=== PATIENT | male | born 1985 | race Caucasian/White ===

== ENCOUNTER 2020-05-11 17:24 | Emergency (ER) | payer MEDICAID, SELFPAY ==
[2020-05-11 17:46] VITALS: BP 115/96; PULSE 82; RESP 18; TEMP 36.8; O2SAT 97; BMI 38.0
--- NOTE | 2020-05-11 18:18 | ED_ITS ---
HPI - General Adult General Chief complaint: Psychiatric Symptoms Stated complaint: Medical Clearance Time Seen by Provider: 05/11/20 17:51 Source: patient Mode of arrival: ambulatory Limitations: no limitations History of Present Illness HPI narrative: 34 y/o male with history of anxiety/depression who presents to the ER requesting a refill of his sertraline that he ran out of a while ago. 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 He denies SI, HI, AH, VH. Denies depression. Has not followed with his doctor in a long time. He states he had not taken his sertraline in over 1 week. When ED staff spoke with his pharmacy they have no record of sertraline being filled there. He denies going to another pharmacy. He denies drug or alcohol use. MD complaint: medication refill Onset (ago): unknown Treatments prior to arrival: none Related Data Previous Rx's Medication Instructions Recorded hydroxyzine HCl 50 mg PO Q6-8H PRN #14 tab 05/11/20 Allergies Allergy/AdvReac Type Severity Reaction Status Date / Time No Known Allergies Allergy Unverified 03/09/20 15:41 Review of Systems Review of Systems: Constitutional: No Fever, No Chills Cardiovascular: No Chest Pain, No SOB Respiratory: No Cough Gastrointestinal: No Nausea, No Vomiting, No Diarrhea, No abdominal Pain Skin: No Skin Lesions, No rash Neuro:+ Headache Psych: + Anxiety/Panic, No Depression PMFSH Past Medical History Attestation statement: The following information was validated with the patient. Social History Social History Alcohol intake: unknown Smoking Status: Current every day smoker Smoked in Last 30 Days: Yes Use of substances other than those prescribed or required for medical reasons: No Advance Directives: No Advance Directives Information Provided: Yes Physical Exam Vital Signs: Vital Signs: Last Vital Signs Temp 98.2 F 05/11/20 17:46 Pulse 82 05/11/20 17:46 Resp 18 05/11/20 17:46 BP 115/96 H 05/11/20 17:46 Pulse Ox 97 05/11/20 17:46 Body Mass Index 38.0 Appearance: Alert. Oriented X3. No acute distress. Eyes: Pupils equal, round and reactive to light. ENT: Pharynx normal. Neck: Normal inspection. Neck supple. CVS: Normal heart rate and rhythm. Pulses normal. Respiratory: No respiratory distress. Breath sounds normal. Abdomen: Soft and nontender. +BS x4 Skin: Skin warm and dry. Normal skin color. Normal skin turgor. No rashes. Extremities: No lower extremity edema. Neuro: Oriented X 3. No motor deficit. No sensory deficit. Course Course Course Narrative: 34 y/o male presenting requesting med refill. No known record of being on this medication. He has no symptoms of acute SSRI withdrawal. He was advised in order to be restarted on this medication he will need to follow up with his PCP. He was also given resources to start up with PCP here. Will give Rx for PRN atarax given anxiety episdoes at home now. Stable for discharge. Critical Care Time Critical Care Time Critical Care Time: No Discharge Plan Discharge Clinical Impression: Anxiety Patient Disposition: Home, Self-Care Instructions: Anxiety (ED) Additional Instructions: Recommend following up with your doctor or call the Primary Care Office here to establish a doctor. In order to get re-started on sertraline, it needs to be done with a doctor who will follow up with you and monitor you. Take the prescribed medication as needed for anxiety. If you develop severe depression with suicidal thoughts call 911 or come back to the ER for further evaluation. Prescriptions: New hydroxyzine HCl 25 mg tablet 50 mg PO Q6-8H PRN (Reason: anxiety ) Qty: 14 RF: 0
== END 2020-05-11 18:56 | disposition home or self-care (01) ==
PROVIDERS: Emergency Provider Emergency Medicine
DX: F33.1 Major depressive disorder, recurrent, moderate (principal); F41.1 Generalized anxiety disorder; F43.0 Acute stress reaction; Z76.0 Encounter for issue of repeat prescription; Z79.899 Other long term (current) drug therapy
CPT/HCPCS: 99284

== ENCOUNTER 2021-04-18 23:31 | Emergency (ER) | payer MEDICAID, SELFPAY ==
--- NOTE | ~2021-04-18 | XR_ITS ---
EXAMINATION: XR SHOULDER, LEFT CLINICAL INFORMATION: Shoulder pain without injury COMPARISON: None TECHNIQUE: Three views of the left shoulder. FINDINGS: The bones and soft tissues are normal. No fracture. Glenohumeral and acromioclavicular alignment is anatomic with mild degenerative changes at the AC joint. No abnormal soft tissue calcifications. XR/XR shoulder LT min 2V IMPRESSION: Normal left shoulder aside from mild degenerative changes at the acromioclavicular joint.
[2021-04-18 23:38] VITALS: BP 146/93; PULSE 84; RESP 16; TEMP 37; O2SAT 98; BMI 34.8
--- NOTE | 2021-04-18 23:38 | ED.UPPEXIN ---
HPI - Extremity Injury (Upper) General Chief Complaint: Extremity Injury, Upper Stated Complaint: Shoulder pain Time Seen by Provider: 04/18/21 23:33 Source: patient Mode of arrival: ambulatory Limitations: no limitations History of Present Illness MD complaint: injury to: left and shoulder Onset (ago): week(s) (1 week ) Other injuries: none Handedness: right Severity: mild Severity scale (1-10): 7 Relieving factors: none Exacerbating factors: none Context: other (None that he can recall) Associated symptoms: denies other symptoms Related Data Previous Rx's Medication Instructions Recorded hydroxyzine HCl 25 mg tablet 50 mg PO Q6-8H PRN #14 tab 05/11/20 cyclobenzaprine 10 mg tablet 10 mg PO Q8H PRN #14 tab 04/18/21 naproxen 500 mg tablet 500 mg PO BID PRN #10 tab 04/18/21 Allergies Allergy/AdvReac Type Severity Reaction Status Date / Time No Known Allergies Allergy Verified 04/18/21 23:37 Review of Systems Review of Systems: Constitutional : No Weight loss, No Fever, No Chills, No Night Sweats, No Fatigue, No Malaise ENT/Mouth : No Hearing loss, No Ear Pain, No Nasal Congestion, No Sinus Pain, No Hoarseness, No sore throat, No Rhinorrhea, No Swallowing Difficulty Eyes: No Eye Pain, No Swelling, No Redness, No Foreign Body, No Discharge, No Vision Changes Cardiovascular : No Chest Pain, No SOB, No Dyspnea on Exertion, No Orthopnea, No Edema, No Palpitations Respiratory : No Cough, No Sputum, No Wheezing, No Smoke Exposure, No Dyspnea Gastrointestinal : No Nausea, No Vomiting, No Diarrhea, No Constipation, No abdominal Pain, No Hematochezia, No Melena Genitourinary : no irregular bleeding, No Dysuria, No Urinary Frequency, No Hematuria, No Urinary Incontinence, No Urgency, No Flank Pain, No Urinary Flow Changes, No Hesitancy Musculoskeletal : + joint pain, No Myalgias, No Joint Swelling Skin : No Skin Lesions, No rash Neuro : No Weakness, No Numbness, No Paresthesias, No Loss of Consciousness, No Dizziness, No Headache Psych : No Anxiety/Panic, No Depression, No SI/HI/AH/VH, No Social Issues, Heme/Lymph: No Bruising, No Bleeding,No Lymphadenopathy Endocrine : No Polyuria, No Polydipsia, No Temperature Intolerance Yes all other systems are reviewed and are negative [facility] Past Medical History Attestation statement: The following information was validated with the patient. Medical History (Updated 04/19/21 @ 00:10 by JAQUELINE Adan) No known health problems Social History Social History Alcohol intake: unknown Advance Directives: No Physical Exam Vital Signs: Vital Signs: Last Vital Signs Temp 98.6 F 04/18/21 23:38 Pulse 84 04/18/21 23:38 Resp 16 04/18/21 23:38 BP 146/93 H 04/18/21 23:38 Pulse Ox 98 04/18/21 23:38 Body Mass Index 34.8 vital signs have been reviewed as normal and appeared to be correct. Blood pressure normal Heart rate normal. Respiration rate normal. Temperature normal. Oxygen saturation normal. Appearance: Alert. Oriented X3. No acute distress. Head: Normal external exam. Normocephalic. Atraumatic. Eyes: PERRLA. EOMI. Conjunctiva and sclera normal. Eyelids normal. ENT: Pharynx normal. Uvula midline. Moist mucous membranes. Neck: Normal inspection. Neck supple. FROM. CVS: Normal heart rate and rhythm. Respiratory: No respiratory distress. Painless inspiration. Skin: Skin warm and dry. Normal skin color. Normal skin turgor. No rashes/lesions/lacerations noted. Extremities: Patient with TTP to left shoulder at the AC aspect no obvious ligamentous or tendon injury and patient has full range of motion of the joint. No upper extremity edema noted. Otherwise all other Extremities exhibit normal range of motion and nontender. Neuro: Oriented X 3. No motor deficit. No sensory deficit. Reflexes normal. Normal steady gait. No focal neuro deficits noted. Vascular: + radial pulses/+ 2 distal pedal pulses/+2 dorsalis pedis b/l. Normal cap refill. No cyanosis noted to upper extremity nails and lower extremity toes nails. Course Course Course Narrative: 35-year-old male presenting to the ED with complaints of atraumatic left shoulder pain for the past week. Denies any trauma that he can recall. He reports he recently has been working out but has not done anything different. Denies any other symptoms complaints or concerns at this time. Will obtain an x-ray of left shoulder if negative will place in a sling and treat symptomatic being referred to Orthopedic with instructions return if any new or worsening symptoms follow-up with primary care provider. Patient understands agrees with this plan. MDM - Extremity Injury (Upper) Medical Records Attestation: I reviewed the patient's medical records. Imaging Data Left shoulder x-ray: Attestation: I personally reviewed and interpreted this imaging study as follows: Radiologist's impression: FINDINGS: The bones and soft tissues are normal. No fracture. Glenohumeral and acromioclavicular alignment is anatomic with mild degenerative changes at the AC joint. No abnormal soft tissue calcifications.? XR/XR shoulder LT min 2V IMPRESSION: Normal left shoulder aside from mild degenerative changes at the acromioclavicular joint. Procedures Orthopedic Splinting/Casting Injury #1: Side: left Upper Extremity Injury Location: shoulder Upper Extremity Immobilizer: sling/shoulder immobilizer Discharge Plan Discharge Clinical Impression: Left shoulder strain, Arthritis of shoulder Patient Disposition: Home, Self-Care Instructions: Shoulder Pain (ED), Arthritis (ED), Shoulder Immobilizer (ED) Prescriptions: New naproxen 500 mg tablet 500 mg PO BID PRN (Reason: pain) Qty: 10 RF: 0 cyclobenzaprine 10 mg tablet 10 mg PO Q8H PRN (Reason: Muscle spasm) Qty: 14 RF: 0 No Action hydroxyzine HCl 25 mg tablet 50 mg PO Q6-8H PRN (Reason: anxiety ) Qty: 14 RF: 0 Referrals: Davis Hansen MD [Physician] - 2 weeks (Call and 1-2 weeks if symptoms persist) Stand Alone Forms: Work/School Release Print Language: Kuwaiti
--- NOTE | 2021-04-19 00:04 | PC.NURSE ---
PT DENIES INJURY, REPORTS THAT HE DOES EXERCISE/WORK OUT. PT HAS GOOD RANGE OF MOTION AND STRENGTH. EXTREMITY WARM, GOOD RADIAL PULSE.
== END 2021-04-19 00:23 | disposition home or self-care (01) ==
PROVIDERS: Emergency Provider Internal Medicine
DX: S46.912A Strain of unspecified muscle, fascia and tendon at shoulder and upper arm level, left arm, initial encounter (principal); M19.012 Primary osteoarthritis, left shoulder; X58.XXXA Exposure to other specified factors, initial encounter; Y93.9 Activity, unspecified; Y92.9 Unspecified place or not applicable; Y99.9 Unspecified external cause status
CPT/HCPCS: 73030; 99283

== ENCOUNTER 2021-12-26 11:45 | Inpatient (IN) | payer OTHER, MEDICAID, SELFPAY ==
--- NOTE | 2021-12-26 11:59 | ED_ITS ---
HPI - Psych General Chief Complaint: Psychiatric Symptoms Stated Complaint: VISUAL & AUD HALLUC,DISORGANIZED THOUGHTS PER EMS Time Seen by Provider: 12/26/21 11:59 Source: patient, EMS and RN notes reviewed Mode of arrival: EMS Limitations: altered mental status History of Present Illness HPI Narrative: Mom called for agitation auditory and visual hallucinations MD complaint: hallucinations Onset (ago): hour(s) Duration: constant History of same: Yes Associated psychiatric symptoms: racing thoughts, auditory hallucinations and visual hallucinations Related Data Home Medications Medication Instructions Recorded Confirmed No Known Home Meds 12/27/21 12/27/21 Allergies Allergy/AdvReac Type Severity Reaction Status Date / Time No Known Allergies Allergy Verified 12/26/21 13:46 Review of Systems Review of Systems: Yes Unobtainable due to mental status Neurologic: Denies Sensory deficit (Neuro) [facility] Past Medical History Medical History (Updated 12/27/21 @ 08:30 by JAQUELINE Cardoza) No known health problems Social History Social History (System 12/26/21 @ 13:46 by Suzie Swanson) Alcohol intake: unknown Advance Directives: No Advance Directives Information Provided: No Physical Exam Vital Signs: Vital Signs: Last Vital Signs Temp 97.6 F 12/27/21 04:58 Pulse 84 12/27/21 04:58 Resp 16 12/27/21 04:58 BP 131/78 12/27/21 04:58 Pulse Ox 94 12/27/21 04:58 O2 Del Method 12/27/21 04:58 BMI result Body Mass Index 30.1 Const: Other: agitated pressured speech Orientation/consciousness: oriented to person Limitations: altered mental status HEENT: Head: Yes normal to inspection Ears: external ears normal General nose exam: Normal external nose present Mouth: Normal oral and palatal mucosa present and oropharynx normal Throat: Yes posterior oropharynx normal Eyes: General: appearance normal, both eyes and all related structures Neck: Other: supple Neck: Yes normal visual inspection Chest: Chest palpation & inspection: normal inspection of the chest Resp: Auscultation: clear to auscultation bilaterally Cardio: Jugular venous distension: no JVD Rate: regular rate Rhythm: regular rhythm Heart sounds: S1 normal heart sound present and S2 normal heart sound present GI: Inspection: Yes normal to inspection Palpation (GI): Soft to palpation, nontender and No hepatosplenomegaly present Auscultation: normal bowel sounds : General: Yes no CVA tenderness Back/Spine/Pelvis: Back: no CVA tenderness Skin: General skin exam: no rashes or lesions noted Neuro: General: oriented to person Cranial nerves: Yes CN's II-XII intact bilaterally Motor exam (neuro): 5/5 motor strength present throughout Sensory Exam: No Sensory deficit (Neuro) Extrem: General: Yes normal to inspection Psych: Appearance: grossly normal Course Reevaluation(s) Reevaluation #1: Patient placed in physician observation at 6:30 pm The indication for observation is that the patient needs more time to see if his hallucinations improves or he will need to be admitted. At this time the patient is well developed well nourished, lungs clear, CV RRR, abd nontender, neuro is intact, resting after being medicated Time: 18:31 MDM - Psych Lab Data Result diagrams: 12/26/21 15:47 12/26/21 15:47 Labs: Lab Results 12/26/21 12/26/21 12/26/21 Range/Units 15:47 15:47 15:49 WBC 11.9 H (4.8-10.8) X10*3/uL RBC 4.89 (4.60-5.80) X10*6/uL Hgb 14.3 (14.0-18.0) g/dl Hct 43.7 (42.0-52.0) % MCV 89.4 (80.0-98.0) fL MCH 29.2 (27.0-33.0) pg MCHC 32.7 (31.0-36.0) g/dl RDW 13.2 (11.0-16.0) % Plt Count 181 (160-400) X10*3/uL MPV 12.2 (9.4-12.4) fL Immature Gran % (Auto) 3.9 H (0.0-0.4) % Neut % (Auto) 82.4 H (45-73) % Lymph % (Auto) 9.7 L (20-40) % [place] % (Auto) 3.5 (2-11) % Eos % (Auto) 0.1 (0-4) % Baso % (Auto) 0.4 (0-2) % Lymph # (Auto) 1.2 (1.2-4.9) X10*3/uL [place] # (Auto) 0.4 (0.1-1.2) X10*3/uL Eos # (Auto) 0.0 (0.0-0.4) X10*3/uL Baso # (Auto) 0.1 (0.0-0.2) X10*3/uL Abs Immat Gran (auto) 0.47 H (0.00-0.03) X10*3/uL Absolute Neuts (auto) 9.8 H (2.0-8.3) x10*3/uL Absolute Nucleated RBC 0.000 (0.0-0.012) X10*3/uL Nucleated RBC % (auto) 0.0 (0.0-0.2) /100WBC Sodium 139 (135-145) mmol/L Potassium 4.7 (3.3-5.1) mmol/L Chloride 103 (96-108) mmol/L Carbon Dioxide 30 H (22-29) mmol/L Anion Gap 11 L (12-20) BUN 8 L (9-16) mg/dL Creatinine 1.02 (0.5-1.4) mg/dL Estim Creat Clear Calc 117.0 Estimated GFR > 60 Random Glucose 122 H (60-115) mg/dL Calcium 9.6 (8.4-10.2) mg/dL Total Bilirubin 0.7 (0.0-1.0) mg/dL AST 20 (5-37) U/L ALT 24 (0-40) U/L Alkaline Phosphatase 76 (39-117) U/L Total Protein 7.5 (6.5-8.0) g/dL Albumin 4.3 (3.5-5.0) g/dL Salicylates < 5.0 L (15-30) mg/dL Urine Opiates Screen (Not Detect) Urine Fentanyl Screen (Not Detect) Acetaminophen < 1 (<30) mcg/mL Ur Barbiturates Screen (Not Detect) Ur Phencyclidine Scrn (Not Detect) Ur Amphetamines Screen (Not Detect) U Benzodiazepines Scrn (Not Detect) Urine Cocaine Screen (Not Detect) U Marijuana (THC) Screen (Not Detect) Ethyl Alcohol < 10 mg/dL COVID-19 ([facility]) Negative (Negative) COVID-19 Clin Com See Note 12/26/21 Range/Units 15:57 WBC (4.8-10.8) X10*3/uL RBC (4.60-5.80) X10*6/uL Hgb (14.0-18.0) g/dl Hct (42.0-52.0) % MCV (80.0-98.0) fL MCH (27.0-33.0) pg MCHC (31.0-36.0) g/dl RDW (11.0-16.0) % Plt Count (160-400) X10*3/uL MPV (9.4-12.4) fL Immature Gran % (Auto) (0.0-0.4) % Neut % (Auto) (45-73) % Lymph % (Auto) (20-40) % [place] % (Auto) (2-11) % Eos % (Auto) (0-4) % Baso % (Auto) (0-2) % Lymph # (Auto) (1.2-4.9) X10*3/uL [place] # (Auto) (0.1-1.2) X10*3/uL Eos # (Auto) (0.0-0.4) X10*3/uL Baso # (Auto) (0.0-0.2) X10*3/uL Abs Immat Gran (auto) (0.00-0.03) X10*3/uL Absolute Neuts (auto) (2.0-8.3) x10*3/uL Absolute Nucleated RBC (0.0-0.012) X10*3/uL Nucleated RBC % (auto) (0.0-0.2) /100WBC Sodium (135-145) mmol/L Potassium (3.3-5.1) mmol/L Chloride (96-108) mmol/L Carbon Dioxide (22-29) mmol/L Anion Gap (12-20) BUN (9-16) mg/dL Creatinine (0.5-1.4) mg/dL Estim Creat Clear Calc Estimated GFR Random Glucose (60-115) mg/dL Calcium (8.4-10.2) mg/dL Total Bilirubin (0.0-1.0) mg/dL AST (5-37) U/L ALT (0-40) U/L Alkaline Phosphatase (39-117) U/L Total Protein (6.5-8.0) g/dL Albumin (3.5-5.0) g/dL Salicylates (15-30) mg/dL Urine Opiates Screen Not Detected (Not Detect) Urine Fentanyl Screen Not Detected (Not Detect) Acetaminophen (<30) mcg/mL Ur Barbiturates Screen Not Detected (Not Detect) Ur Phencyclidine Scrn Not Detected (Not Detect) Ur Amphetamines Screen Not Detected (Not Detect) U Benzodiazepines Scrn Not Detected (Not Detect) Urine Cocaine Screen Not Detected (Not Detect) U Marijuana (THC) Screen POSITIVE H (Not Detect) Ethyl Alcohol mg/dL COVID-19 ([facility]) (Negative) COVID-19 Clin Com Discharge Plan Discharge Clinical Impression: Acute psychosis Patient Disposition: Still a Patient Prescriptions: No Action No Known Home Meds
[2021-12-26] MEDS: LORazepam 2 MG/ML VIAL 4 MG IM (14:28)
[2021-12-26] MEDS: Haloperidol Lactate 5 MG/ML VIAL 10 MG IM (14:29)
[2021-12-26 15:06] VITALS: BP 165/110; PULSE 100; RESP 16; TEMP 36.6; O2SAT 96; BMI 30.1
[2021-12-26 15:56] LABS: MANUAL DIFF FLAG NO
[2021-12-26 15:58] LABS: Basophils Absolute Auto 0.1 X10*3/uL (0.0-0.2); Basophils Percent Auto 0.4 % (0-2); Eosinophils Percent Auto 0.1 % (0-4); Hematocrit 43.7 % (42.0-52.0); Hemoglobin 14.3 g/dl (14.0-18.0); Imm Gran Abs Auto 0.47 X10*3/uL (0.00-0.03); Imm Gran Pct Auto 3.9 % (0.0-0.4); Lymphocytes Absolute Auto 1.2 X10*3/uL (1.2-4.9); Lymphocytes Percent Auto 9.7 % (20-40); Mean Corpuscular HGB Conc 32.7 g/dl (31.0-36.0); Mean Corpuscular Hemoglobin 29.2 pg (27.0-33.0); Mean Corpuscular Volume 89.4 fL (80.0-98.0); Mean Platelet Volume 12.2 fL (9.4-12.4); Monocytes Absolute Auto 0.4 X10*3/uL (0.1-1.2); Monocytes Percent Auto 3.5 % (2-11); Neutrophils Absolute Auto 9.8 x10*3/uL (2.0-8.3); Neutrophils Percent Auto 82.4 % (45-73); Platelet Count 181 X10*3/uL (160-400); Red Blood Count 4.89 X10*6/uL (4.60-5.80); Red Cell Distribution Width 13.2 % (11.0-16.0); White Blood Count 11.9 X10*3/uL (4.8-10.8)
[2021-12-26 16:16] LABS: COVID-19 Test Negative (Negative); IDNOW Serial# 55D5AD1C
[2021-12-26 16:16] LABS: Acetaminophen LAB < 1 mcg/mL (<30); Alanine Aminotransferase 24 U/L (0-40); Albumin Level 4.3 g/dL (3.5-5.0); Alkaline Phosphatase 76 U/L (39-117); Anion Gap 11 (12-20); Aspartate Amino Transferase 20 U/L (5-37); Bilirubin Total 0.7 mg/dL (0.0-1.0); Blood Urea Nitrogen 8 mg/dL (9-16); Calcium 9.6 mg/dL (8.4-10.2); Carbon Dioxide 30 mmol/L (22-29); Chloride 103 mmol/L (96-108); Estimated Glomerular Filt Rate > 60; Ethanol < 10 mg/dL; Glucose Random 122 mg/dL (60-115); Potassium 4.7 mmol/L (3.3-5.1); Salicylate < 5.0 mg/dL (15-30); Sodium 139 mmol/L (135-145); Total Protein 7.5 g/dL (6.5-8.0)
[2021-12-26 16:32] LABS: Amphetamine Screen Urine Not Detected (Not Detect); Barbiturates, Urine Not Detected (Not Detect); Benzodiazepines Screen Urine Not Detected (Not Detect); Cannabinoid Screen Urine POSITIVE (Not Detect); Cocaine Screen Urine Not Detected (Not Detect); Fentanyl, urine Not Detected (Not Detect); Opiate Screen Urine Not Detected (Not Detect); Phencyclidine Screen Urine Not Detected (Not Detect)
--- NOTE | 2021-12-26 18:44 | PC.NURSE ---
patient has since IM has asked regularly about dc potential, patient pervasively exhibits paranoid and grandiose behaviors within 1-1.5 hours after patient settled some but never lenghtily fell asleep.
[2021-12-26] MEDS: HaloperidoL 5 MG TABLET 10 MG PO (19:31)
[2021-12-26] MEDS: LORazepam 1 MG TABLET 2 MG PO (19:31)
[2021-12-26] MEDS: diphenhydrAMINE HCL 25 MG TABLET PO (19:35)
[2021-12-26 19:50] VITALS: BP 127/68; PULSE 85; RESP 18; TEMP 36.8; O2SAT 97
[2021-12-27 04:58] VITALS: BP 131/78; PULSE 84; RESP 16; TEMP 36.4; O2SAT 94
--- NOTE | 2021-12-27 05:41 | PC.NURSE ---
Patient slept through the night, no distress observed/reported, PRN Haldol 10 mg PO and Ativan 2 mg PO administered at 1931 with + effect, vss, behavior appropriate and non concerning at this time, disposition per [facility] is section 12 inpatient bed search, will continue to monitor.
[2021-12-27] MEDS: HaloperidoL 5 MG TABLET 10 MG PO (07:53)
--- NOTE | 2021-12-27 07:53 | PC.NURSE ---
Agitated, pacing, shouting repeatedly I need to be discharged. i need to get to work to keep my housing . security called to pod. Pt having difficulty de escalating but able to take PRN PO Haldol. This RN offering to assist in calling employer to notify that he won'y be at work. Pt insists he must do so in person. Finally calming and lying on couch/bed in back room of POd.
--- NOTE | 2021-12-27 11:01 | PC.NURSE ---
Pt calmer now for longer periods. Has approached this RN multiple times requesting discharge. Pt seems to not remember previous conversations regarding disposition. States he has a degree from [employer] and that he shouldn't be locked in here like i'm in [facility]. i know what [facility] is like. i've been [facility].
[2021-12-27] MEDS: chlorproMAZINE HCl 100 MG TABLET 200 MG PO (14:36)
[2021-12-27] MEDS: LORazepam 1 MG TABLET 2 MG PO ×2 (14:37→20:33)
--- NOTE | 2021-12-27 14:49 | PC.NURSE ---
Pt took meds without difficulty. Initially wasn't willing but took meds when told that it was part of treatment plan. Pt continuously requestsdischarge.
--- NOTE | 2021-12-27 15:11 | PC.NURSE ---
TEDDYN in room with patient. Pt was sleeping but able to wake to voice.
[2021-12-27 15:25] VITALS: BP 171/88; PULSE 91; RESP 18; TEMP 36.4; O2SAT 97
--- NOTE | 2021-12-27 16:18 | ECG_ITS ---
Test Reason : MEDICAL CLEARANCE Blood Pressure : / mmHG Vent. Rate : 120 BPM Atrial Rate : 120 BPM P-R Int : 142 ms QRS Dur : 078 ms QT Int : 312 ms P-R-T Axes : 052 -03 029 degrees QTc Int : 440 ms Sinus tachycardia Possible Left atrial enlargement Borderline ECG When compared with ECG of 24-AUG-2018 18:11, Vent. rate has increased BY 52 BPM Referred By: Queenie Bashir Electronically Signed By:Aurelio Kam
--- NOTE | 2021-12-27 16:26 | PC.NURSE ---
sleeping on and off. remains arousble to voice.
[2021-12-27 16:54] LABS: COVID-19 Test Negative (Negative)
--- NOTE | 2021-12-27 17:25 | HO.PSYADMNOT ---
HPI Chief Complaint: aggression/ paranoia HPI Past Psychiatric History: Inpatient: [facility] 2010, 2010, [facility] 2020 for 3 months. OP: [facility] use to see therapist Julianne Wright, but refused to see psychiatrist as he does not think he needs medications. Past medication trials: unknown. [facility] Medical History (Updated 12/27/21 @ 15:06 by Teodora Lopez) No known health problems Family History: unknown Social History: lives with mother and step father Trauma History: denies Diagnostics Vital Signs (24Hr): Vital Signs - 24 hr 12/26/21 19:50 12/27/21 04:58 12/27/21 15:25 Temperature 98.2 F 97.6 F 97.5 F Pulse Rate 85 84 91 Respiratory Rate 18 16 18 Blood Pressure 127/68 131/78 171/88 H Pulse Oximetry 97 94 97 Oxygen Delivery Method Room Air Room Air Room Air BMI result Body Mass Index 30.1 Labs Results: 12/26/21 15:47 12/26/21 15:47 Labs: Laboratory Results - last 48 hr 12/26/21 12/26/21 12/26/21 15:47 15:47 15:49 WBC 11.9 H RBC 4.89 Hgb 14.3 Hct 43.7 MCV 89.4 MCH 29.2 MCHC 32.7 RDW 13.2 Plt Count 181 MPV 12.2 Immature Gran % (Auto) 3.9 H Neut % (Auto) 82.4 H Lymph % (Auto) 9.7 L [place] % (Auto) 3.5 Eos % (Auto) 0.1 Baso % (Auto) 0.4 Lymph # (Auto) 1.2 [place] # (Auto) 0.4 Eos # (Auto) 0.0 Baso # (Auto) 0.1 Abs Immat Gran (auto) 0.47 H Absolute Neuts (auto) 9.8 H Absolute Nucleated RBC 0.000 Nucleated RBC % (auto) 0.0 Sodium 139 Potassium 4.7 Chloride 103 Carbon Dioxide 30 H Anion Gap 11 L BUN 8 L Creatinine 1.02 Estim Creat Clear Calc 117.0 Estimated GFR > 60 Random Glucose 122 H Calcium 9.6 Total Bilirubin 0.7 AST 20 ALT 24 Alkaline Phosphatase 76 Total Protein 7.5 Albumin 4.3 Salicylates < 5.0 L Urine Opiates Screen Urine Fentanyl Screen Acetaminophen < 1 Ur Barbiturates Screen Ur Phencyclidine Scrn Ur Amphetamines Screen U Benzodiazepines Scrn Urine Cocaine Screen U Marijuana (THC) Screen Ethyl Alcohol < 10 COVID-19 ([facility]) Negative COVID-19 Clin Com See Note 12/26/21 12/27/21 15:57 16:25 WBC RBC Hgb Hct MCV MCH MCHC RDW Plt Count MPV Immature Gran % (Auto) Neut % (Auto) Lymph % (Auto) [place] % (Auto) Eos % (Auto) Baso % (Auto) Lymph # (Auto) [place] # (Auto) Eos # (Auto) Baso # (Auto) Abs Immat Gran (auto) Absolute Neuts (auto) Absolute Nucleated RBC Nucleated RBC % (auto) Sodium Potassium Chloride Carbon Dioxide Anion Gap BUN Creatinine Estim Creat Clear Calc Estimated GFR Random Glucose Calcium Total Bilirubin AST ALT Alkaline Phosphatase Total Protein Albumin Salicylates Urine Opiates Screen Not Detected Urine Fentanyl Screen Not Detected Acetaminophen Ur Barbiturates Screen Not Detected Ur Phencyclidine Scrn Not Detected Ur Amphetamines Screen Not Detected U Benzodiazepines Scrn Not Detected Urine Cocaine Screen Not Detected U Marijuana (THC) Screen POSITIVE H Ethyl Alcohol COVID-19 ([facility]) Negative COVID-19 Clin Com See Note Meds/Allergies Meds Home Medications Medication Instructions Recorded Confirmed Type No Known Home Meds 12/27/21 12/27/21 History Allergies Allergies Allergy/AdvReac Type Severity Reaction Status Date / Time No Known Allergies Allergy Verified 12/26/21 13:46
--- NOTE | 2021-12-27 17:36 | PC.NURSE ---
RN to RN with Yovana on M3
[2021-12-27 18:00] VITALS: BP 118/60; PULSE 85; RESP 20; TEMP 36.8; O2SAT 97
--- NOTE | 2021-12-27 18:35 | PC.NURSE ---
Nursing admission note: Patient 36 year old male DX: Unspecified Schizophrenia. Arrived to unit accompanied by security and staff. Patient engages easily however appears suspicious, asking technical writer and editor what is being typed, looking about room and out window. Calm and cooperative during assessment. Patient A+O x2, place, name and day. Not oriented to date, poor insight into admission. Patient referred by CARE team for admission following [facility] assessment. Patient's mother contacted crisis due to increased psychosis. Patient presents in blanket and hospital pants. Engaged for admission process however falling asleep due to medication received in ED. 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 Affect is blunted. Polite during assessment, not agitated or irritable however frequently asking how long he will be here stating he wants to go home. States his mother kicked me out followed by stating he has his own apartment. She is a snake, and I am a lion . Patient denies SI/HI plan or intent at this time. Denies A/V hallucinations at this time. Patient denies medical problems. NKDA. COVID screen negative. Denies drug and alcohol use, states I am not a drug addict, I have never used heroin. I buy marijuana at the dispensary, it is legal . States he smokes weekly, every Friday . Non smoker. Patient denies sleep or appetite disturbances. Patient denies any legal involvement at this time. See nursing assessment for further details, see crisis eval for complete details.
[2021-12-27 19:10] VITALS: BMI 31.1
[2021-12-27] MEDS: chlorproMAZINE HCl 100 MG TABLET PO (20:32)
[2021-12-27] MEDS: Benztropine Mesylate 1 MG TABLET PO (20:32)
[2021-12-27] MEDS: HaloperidoL 5 MG TABLET PO (20:32)
[2021-12-28 08:15] VITALS: BP 121/61; PULSE 81; RESP 18; TEMP 36.6; O2SAT 98
[2021-12-28] MEDS: Benztropine Mesylate 1 MG TABLET PO (09:10)
[2021-12-28] MEDS: chlorproMAZINE HCl 100 MG TABLET PO ×3 (09:10→22:55)
[2021-12-28] MEDS: HaloperidoL 5 MG TABLET PO ×2 (09:10→22:55)
[2021-12-28] MEDS: LORazepam 1 MG TABLET 2 MG PO ×3 (09:10→22:55)
[2021-12-28 09:29] LABS: Alanine Aminotransferase 27 U/L (0-40); Albumin Level 4.2 g/dL (3.5-5.0); Alkaline Phosphatase 75 U/L (39-117); Anion Gap 14 (12-20); Aspartate Amino Transferase 25 U/L (5-37); Bilirubin Total 1.2 mg/dL (0.0-1.0); Blood Urea Nitrogen 11 mg/dL (9-16); Calcium 9.2 mg/dL (8.4-10.2); Carbon Dioxide 27 mmol/L (22-29); Chloride 102 mmol/L (96-108); Cholesterol 161 mg/dL; Creatinine Clr Calc Pharmacy 130.5; Estimated Glomerular Filt Rate > 60; Glucose Fasting 106 mg/dL (60-99); HDL Cholesterol 51 mg/dL; LDL Cholesterol Calculated 85 mg/dl; Potassium 4.1 mmol/L (3.3-5.1); Sodium 139 mmol/L (135-145); Total Protein 7.5 g/dL (6.5-8.0); Triglycerides 125 mg/dL
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
[2021-12-28 09:31] LABS: Estimated Average Glucose 108 mg/dL; Hemoglobin A1c % 5.4 %
[2021-12-28 22:50] VITALS: BP 133/60; PULSE 116; RESP 16; TEMP 36.3; O2SAT 98
[2021-12-29 06:00] VITALS: BP 117/64; PULSE 99; RESP 18; TEMP 36.3; O2SAT 95
[2021-12-29] MEDS: HaloperidoL 5 MG TABLET PO ×2 (09:27→22:58)
[2021-12-29] MEDS: Nicotine 21 MG PATCH.TD24 TRANSDERMA (09:34)
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
[2021-12-29 22:36] VITALS: BP 143/86; PULSE 94; RESP 18; TEMP 36.4; O2SAT 96
[2021-12-29] MEDS: chlorproMAZINE HCl 100 MG TABLET PO (22:58)
[2021-12-29] MEDS: LORazepam 1 MG TABLET 2 MG PO (22:58)
[2021-12-29] MEDS: Triamcinolone Acet 0.025 % Cream 15 GM TUBE 1 APPL TOPICAL (22:58)
[2021-12-30 06:00] VITALS: BP 131/71; PULSE 113; RESP 18; TEMP 36.3; O2SAT 99
[2021-12-30] MEDS: HaloperidoL 5 MG TABLET PO ×2 (09:33→22:44)
[2021-12-30] MEDS: Nicotine 21 MG PATCH.TD24 TRANSDERMA (09:34)
[2021-12-30] MEDS: Triamcinolone Acet 0.025 % Cream 15 GM TUBE 1 APPL TOPICAL (09:34)
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
[2021-12-30] MEDS: Nicotine Polacrilex 2 MG GUM 4 MG BUCCAL (19:51)
[2021-12-30 20:10] VITALS: BP 136/81; PULSE 96; RESP 18; TEMP 36.6; O2SAT 97
[2021-12-30] MEDS: Lithium Carbonate 300 MG CAPSULE 600 MG PO (22:44)
[2021-12-31] MEDS: Nicotine 21 MG PATCH.TD24 TRANSDERMA (07:58)
[2021-12-31] MEDS: Lithium Carbonate 300 MG CAPSULE 600 MG PO ×2 (07:59→22:14)
[2021-12-31] MEDS: HaloperidoL 5 MG TABLET PO ×2 (07:59→22:14)
[2021-12-31] MEDS: Triamcinolone Acet 0.025 % Cream 15 GM TUBE 1 APPL TOPICAL (08:03)
[2021-12-31 08:05] VITALS: BP 146/71; PULSE 103; RESP 16; TEMP 36.3; O2SAT 95
--- NOTE | 2021-12-31 11:24 | P.PNPSI_ITS ---
Subjective Subjective Date of Service: 12/31/21 Reason For Visit: aggression/ paranoia Subjective Notes: Section 12B Interim History: Pt reports that he has to go to work, that he has an apartment- shows me picture of magazine, states he has same furniture. He reports he is student at [employer]. He reports he works 12 hrs a day. He denies SI/HI. 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 However, pt reports he does not live with his mother, which mother has said he does live with him and does not work. Pt denies SI/HI. He is taking medications as prescribed. He asks for discharge soon and overly friendly with this administrative underwriter asking for discharge. Medication Compliance: Yes Side effects from medications: No Review of Systems Review of Systems Yes Unobtainable due to mental status Denies Sensory deficit (Neuro) Mental Status Exam Mental Status Exam Narrative: Appearance: casually groomed, fair hygiene in NAD Behavior:guarded, irritable, suspicious psychomotor:intermittent agitation Speech:clear, normal rate/rhythm/volume, spontaneous Thought process:some derailment at times, Thought content:focused on discharge home and going to work Mood: fine Affect: irritable, guarded SI:denies HI:denies VH/AH:appears internally preoccupied Delusions:paranoid/grandiose delusions Insight/judgment:impaired x 2. Memory/cog: alert, oriented not to situation. Diagnostics Vital Signs (24Hr): Vital Signs - 24 hr 12/30/21 20:10 12/31/21 08:05 Temperature 97.8 F 97.4 F Pulse Rate 96 103 H Respiratory Rate 18 16 Blood Pressure 136/81 146/71 H Pulse Oximetry 97 95 Oxygen Delivery Method Room Air Room Air BMI result Body Mass Index 31.1 Labs Results: 12/26/21 15:47 12/28/21 08:33 Medications Medications Current Medications Acetaminophen (Acetaminophen 325 Mg Tablet) 650 mg PO Q6H PRN PRN Reason: Headache/Pain Mild Scale (1-3) Al Hydroxide/Mg Hydroxide (Magnesium Hydrox/Alum Hydrox 30 Ml Oral.Susp) 30 ml PO Q6H PRN PRN Reason: Heartburn/Nausea Benztropine Mesylate (Benztropine Mesylate 1 Mg Tablet) 1 mg PO BID PRN PRN Reason: EPS Last Admin: 12/28/21 09:10 Dose: 1 mg Chlorpromazine HCl (Chlorpromazine Hcl 100 Mg Tablet) 100 mg PO Q4H PRN PRN Reason: agitation Last Admin: 12/29/21 22:58 Dose: 100 mg Haloperidol (Haloperidol 5 Mg Tablet) 5 mg PO BID [facility] Last Admin: 12/31/21 07:59 Dose: 5 mg Hydroxyzine HCl (Hydroxyzine Hcl 50 Mg Tablet) 50 mg PO Q6H PRN PRN Reason: Anxiety Ambrose Carbonate (Ambrose Carbonate 300 Mg Capsule) 600 mg PO BID [facility] Last Admin: 12/31/21 07:59 Dose: 600 mg Lorazepam (Lorazepam 1 Mg Tablet) 2 mg PO Q4H PRN PRN Reason: Agitation Last Admin: 12/29/21 22:58 Dose: 2 mg Magnesium Hydroxide (Milk Of Magnesia 30 Ml Oral.Susp) 30 ml PO DAILY PRN PRN Reason: Constipation Nicotine (Nicotine 21 Mg Patch.Td24) 21 mg TRANSDERMA DAILY [facility] Last Admin: 12/31/21 07:58 Dose: 21 mg Nicotine Polacrilex (Nicotine Polacrilex 2 Mg Gum) 4 mg BUCCAL Q2H PRN PRN Reason: Nicotine Cravings Last Admin: 12/30/21 19:51 Dose: 4 mg Trazodone HCl (Trazodone Hcl 100 Mg Tablet) 100 mg PO BEDTIME PRN PRN Reason: Insomnia Triamcinolone Acetonide (Triamcinolone Acet 0.025 % Cream 15 Gm Tube) 1 appl TOPICAL BID [facility]; Protocol Last Admin: 12/31/21 08:03 Dose: 1 appl Allergies Allergies Allergy/AdvReac Type Severity Reaction Status Date / Time No Known Allergies Allergy Verified 12/26/21 13:46 Assessment & Plan Assessment & Plan (1) Schizoaffective disorder, bipolar type: Status: Acute Code(s): F25.0 - Schizoaffective disorder, bipolar type Plan Mr. Perez is a 36 year-old male with hx of schizoaffective disorder, brought in on section 12 after mother reporting increase paranoia, agitation, threatening to kill her and his step father, paranoid towards neighbor. utox positive for ca nnabinoids. Pt presents as guarded, not fully forthcoming with extend of delusional content, irritable, asking to be discharge home. PLAN 1. Inpatient level of care due to imminent risk of harm to self and others due to paranoia, psychosis, increase aggression and impaired judgment and insight into need for psychiatric treatment. Section 12. 2. Schedule haldol 5mg po BID, will request records from [place] to obtain medication hx. 3. Aftercare planning. 12/29: no change in mgmt. 12/30: offer lithium for what may be ladonna. continue haldol. 12/31 continue current medications. I spent minutes with the patient and/or on the patient floor today, greater than?50% of which was spent counseling/coordinating care. Reason for contiued inpatient stay Substantial Risk for: harm to others and inability to function
[2021-12-31 20:27] VITALS: BP 133/76; PULSE 75; RESP 17; TEMP 36.6; O2SAT 99
[2021-12-31] MEDS: traZODone HCL 100 MG TABLET PO (22:18)
[2022-01-01] MEDS: HaloperidoL 5 MG TABLET PO ×2 (08:28→20:57)
[2022-01-01] MEDS: Lithium Carbonate 300 MG CAPSULE 600 MG PO ×2 (08:28→20:57)
[2022-01-01] MEDS: Nicotine 21 MG PATCH.TD24 TRANSDERMA (08:29)
[2022-01-01] MEDS: Triamcinolone Acet 0.025 % Cream 15 GM TUBE 1 APPL TOPICAL (09:05)
[2022-01-01 09:18] VITALS: BP 144/81; PULSE 83; RESP 18; TEMP 36.3; O2SAT 96
--- NOTE | 2022-01-01 11:31 | HO.PSYCHPN ---
Subjective Subjective Date of Service: 01/01/22 Reason For Visit: aggression/ paranoia Subjective Notes: Conditional Voluntary Interim History: Pt informed that he is not stable to be discharged. Pt explain that treatment team will petiontion for involuntary treatment, however, pt reported he would rather sign CV and asked how long he needs to stay. We discussed tentatively in 2 weeks if stable otherwise we would have to decide whether to file or d/c. Pt continues to present with delusions related to being a [employer], having to go to work, living on his own. He denied SI/HI. He also agreed to get PRIETO Medication Compliance: Yes Review of Systems Review of Systems Yes Unobtainable due to mental status Denies Sensory deficit (Neuro) Mental Status Exam Mental Status Exam Narrative: Appearance: casually groomed, fair hygiene in NAD Behavior:guarded, irritable, suspicious psychomotor:intermittent agitation Speech:clear, normal rate/rhythm/volume, spontaneous Thought process:some derailment at times, Thought content:focused on discharge home and going to work Mood: fine Affect: irritable, guarded SI:denies HI:denies VH/AH:appears internally preoccupied Delusions:paranoid/grandiose delusions Insight/judgment:impaired x 2. Memory/cog: alert, oriented not to situation. Diagnostics Vital Signs (24Hr): Vital Signs - 24 hr 12/31/21 20:27 01/01/22 09:18 Temperature 97.8 F 97.3 F Pulse Rate 75 83 Respiratory Rate 17 18 Blood Pressure 133/76 144/81 H Pulse Oximetry 99 96 Oxygen Delivery Method Room Air Room Air BMI result Body Mass Index 31.1 Labs Results: 12/26/21 15:47 12/28/21 08:33 Medications Medications Current Medications Acetaminophen (Acetaminophen 325 Mg Tablet) 650 mg PO Q6H PRN PRN Reason: Headache/Pain Mild Scale (1-3) Al Hydroxide/Mg Hydroxide (Magnesium Hydrox/Alum Hydrox 30 Ml Oral.Susp) 30 ml PO Q6H PRN PRN Reason: Heartburn/Nausea Benztropine Mesylate (Benztropine Mesylate 1 Mg Tablet) 1 mg PO BID PRN PRN Reason: EPS Last Admin: 12/28/21 09:10 Dose: 1 mg Chlorpromazine HCl (Chlorpromazine Hcl 100 Mg Tablet) 100 mg PO Q4H PRN PRN Reason: agitation Last Admin: 12/29/21 22:58 Dose: 100 mg Haloperidol (Haloperidol 5 Mg Tablet) 5 mg PO BID [facility] Last Admin: 01/01/22 08:28 Dose: 5 mg Haloperidol Decanoate (Haloperidol Decanoate 50 Mg/Ml Ampul) 100 mg IM Q28D [facility] Last Admin: 01/01/22 14:39 Dose: 100 mg Hydroxyzine HCl (Hydroxyzine Hcl 50 Mg Tablet) 50 mg PO Q6H PRN PRN Reason: Anxiety [place] Carbonate ([place] Carbonate 300 Mg Capsule) 600 mg PO BID [facility] Last Admin: 01/01/22 08:28 Dose: 600 mg Magnesium Hydroxide (Milk Of Magnesia 30 Ml Oral.Susp) 30 ml PO DAILY PRN PRN Reason: Constipation Nicotine (Nicotine 21 Mg Patch.Td24) 21 mg TRANSDERMA DAILY [facility] Last Admin: 01/01/22 08:29 Dose: 21 mg Nicotine Polacrilex (Nicotine Polacrilex 2 Mg Gum) 4 mg BUCCAL Q2H PRN PRN Reason: Nicotine Cravings Last Admin: 12/30/21 19:51 Dose: 4 mg Trazodone HCl (Trazodone Hcl 100 Mg Tablet) 100 mg PO BEDTIME PRN PRN Reason: Insomnia Last Admin: 12/31/21 22:18 Dose: 100 mg Triamcinolone Acetonide (Triamcinolone Acet 0.025 % Cream 15 Gm Tube) 1 appl TOPICAL BID [facility]; Protocol Last Admin: 01/01/22 09:05 Dose: 1 appl Allergies Allergies Allergy/AdvReac Type Severity Reaction Status Date / Time No Known Allergies Allergy Verified 12/26/21 13:46 Assessment & Plan Assessment & Plan (1) Schizoaffective disorder, bipolar type: Status: Acute Code(s): F25.0 - Schizoaffective disorder, bipolar type Plan Mr. Perez is a 36 year-old male with hx of schizoaffective disorder, brought in on section 12 after mother reporting increase paranoia, agitation, threatening to kill her and his step father, paranoid towards neighbor. utox positive for cannabinoids. Pt presents as guarded, not fully forthcoming with extend of delusional content, irritable, asking to be discharge home. PLAN 1. Inpatient level of care due to imminent risk of harm to self and others due to paranoia, psychosis, increase aggression and impaired judgment and insight into need for psychiatric treatment. Section 12. 2. Schedule haldol 5mg po BID, will request records from [place] to obtain medication hx. 3. Aftercare planning. 12/29: no change in mgmt. 12/30: offer lithium for what may be ladonna. continue haldol. 12/31 continue current medications. 01/01 start Haldol Dec 100mg IM q28 days, continue oral haldol due to delay onset of action, continue lithium and clonazepam. I spent _25 minutes with the patient and/or on the patient floor today, greater than?50% of which was spent counseling/coordinating care. Reason for contiued inpatient stay Substantial Risk for: harm to others and inability to function
--- NOTE | 2022-01-01 15:29 | PC.NURSE ---
Patient signed conditional voluntary.
[2022-01-02] MEDS: Nicotine 21 MG PATCH.TD24 TRANSDERMA (08:16)
[2022-01-02] MEDS: Lithium Carbonate 300 MG CAPSULE 600 MG PO ×2 (08:16→22:12)
[2022-01-02] MEDS: HaloperidoL 5 MG TABLET PO ×2 (08:16→22:12)
[2022-01-02 08:30] VITALS: BP 130/76; PULSE 77; RESP 18; TEMP 36.5; O2SAT 100
[2022-01-02] MEDS: Triamcinolone Acet 0.025 % Cream 15 GM TUBE 1 APPL TOPICAL ×2 (10:34→22:21)
--- NOTE | 2022-01-02 10:43 | HO.PSYCHPN ---
Subjective Subjective Date of Service: 01/02/22 Reason For Visit: aggression/ paranoia Subjective Notes: Conditional Voluntary Interim History: Pt calmer, focused on discharge and asks this underwriter mortgage loan if 100% sure he will be discharged in about 2 weeks. 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 He denies SI/HI. He is sleeping through the night, no behavioral concerns. Medication Compliance: Yes Side effects from medications: No Attending Groups: Intermittent Review of Systems Review of Systems Yes Unobtainable due to mental status Denies Sensory deficit (Neuro) Mental Status Exam Mental Status Exam Narrative: Appearance: casually groomed, fair hygiene in NAD Behavior:guarded, but less irritable psychomotor:no agitation or retardation noted Speech:clear, normal rate/rhythm/volume, spontaneous Thought process:some derailment Thought content:focused on discharge home and going to work Mood: fine Affect: guarded SI:denies HI:denies VH/AH:appears internally preoccupied Delusions:paranoid/grandiose delusions Insight/judgment:impaired x 2. Memory/cog: alert, oriented not to situation. Diagnostics Vital Signs (24Hr): Vital Signs - 24 hr 01/02/22 08:30 Temperature 97.7 F Pulse Rate 77 Respiratory Rate 18 Blood Pressure 130/76 Pulse Oximetry 100 Oxygen Delivery Method Room Air BMI result Body Mass Index 31.1 Labs Results: 12/26/21 15:47 12/28/21 08:33 Medications Medications Current Medications Acetaminophen (Acetaminophen 325 Mg Tablet) 650 mg PO Q6H PRN PRN Reason: Headache/Pain Mild Scale (1-3) Al Hydroxide/Mg Hydroxide (Magnesium Hydrox/Alum Hydrox 30 Ml Oral.Susp) 30 ml PO Q6H PRN PRN Reason: Heartburn/Nausea Benztropine Mesylate (Benztropine Mesylate 1 Mg Tablet) 1 mg PO BID PRN PRN Reason: EPS Last Admin: 12/28/21 09:10 Dose: 1 mg Chlorpromazine HCl (Chlorpromazine Hcl 100 Mg Tablet) 100 mg PO Q4H PRN PRN Reason: agitation Last Admin: 12/29/21 22:58 Dose: 100 mg Haloperidol (Haloperidol 5 Mg Tablet) 5 mg PO BID [facility] Last Admin: 01/02/22 08:16 Dose: 5 mg Haloperidol Decanoate (Haloperidol Decanoate 50 Mg/Ml Ampul) 100 mg IM Q28D [facility] Last Admin: 01/01/22 14:39 Dose: 100 mg Hydroxyzine HCl (Hydroxyzine Hcl 50 Mg Tablet) 50 mg PO Q6H PRN PRN Reason: Anxiety [place] Carbonate ([place] Carbonate 300 Mg Capsule) 600 mg PO BID [facility] Last Admin: 01/02/22 08:16 Dose: 600 mg Magnesium Hydroxide (Milk Of Magnesia 30 Ml Oral.Susp) 30 ml PO DAILY PRN PRN Reason: Constipation Nicotine (Nicotine 21 Mg Patch.Td24) 21 mg TRANSDERMA DAILY [facility] Last Admin: 01/02/22 08:16 Dose: 21 mg Nicotine Polacrilex (Nicotine Polacrilex 2 Mg Gum) 4 mg BUCCAL Q2H PRN PRN Reason: Nicotine Cravings Last Admin: 12/30/21 19:51 Dose: 4 mg Trazodone HCl (Trazodone Hcl 100 Mg Tablet) 100 mg PO BEDTIME PRN PRN Reason: Insomnia Last Admin: 12/31/21 22:18 Dose: 100 mg Triamcinolone Acetonide (Triamcinolone Acet 0.025 % Cream 15 Gm Tube) 1 appl TOPICAL BID [facility]; Protocol Last Admin: 01/02/22 10:34 Dose: 1 appl Allergies Allergies Allergy/AdvReac Type Severity Reaction Status Date / Time No Known Allergies Allergy Verified 12/26/21 13:46 Assessment & Plan Assessment & Plan (1) Schizoaffective disorder, bipolar type: Status: Acute Code(s): F25.0 - Schizoaffective disorder, bipolar type Plan Mr. Perez is a 36 year-old male with hx of schizoaffective disorder, brought in on section 12 after mother reporting increase paranoia, agitation, threatening to kill her and his step father, paranoid towards neighbor. utox positive for cannabinoids. Pt presents as guarded, not fully forthcoming with extend of delusional content, irritable, asking to be discharge home. PLAN 1. Inpatient level of care due to imminent risk of harm to self and others due to paranoia, psychosis, increase aggression and impaired judgment and insight into need for psychiatric treatment. Section 12. 2. Schedule haldol 5mg po BID, will request records from [place] to obtain medication hx. 3. Aftercare planning. 12/29: no change in mgmt. 12/30: offer lithium for what may be ladonna. continue haldol. 12/31 continue current medications. 01/01 start Haldol Dec 100mg IM q28 days, continue oral haldol due to delay onset of action, continue lithium and clonazepam. 01/02 continue current medications. pending lithium level in few days. I spent __25____ minutes with the patient and/or on the patient floor today, greater than?50% of which was spent counseling/coordinating care. Reason for contiued inpatient stay Substantial Risk for: harm to others and inability to function
[2022-01-02 22:17] VITALS: BP 132/80; PULSE 70; TEMP 36.5; O2SAT 97
[2022-01-02] MEDS: traZODone HCL 100 MG TABLET PO (22:21)
[2022-01-03 07:00] VITALS: BMI 38.5
[2022-01-03 08:00] VITALS: BP 101/61; PULSE 76; RESP 16; TEMP 36.7; O2SAT 97
[2022-01-03] MEDS: Nicotine 21 MG PATCH.TD24 TRANSDERMA (09:06)
[2022-01-03] MEDS: HaloperidoL 5 MG TABLET PO ×2 (09:08→21:44)
[2022-01-03] MEDS: Lithium Carbonate 300 MG CAPSULE 600 MG PO ×2 (09:08→21:44)
[2022-01-03] MEDS: Magnesium Hydrox/Alum Hydrox 30 ML ORAL.SUSP PO (11:12)
[2022-01-03] MEDS: Triamcinolone Acet 0.025 % Cream 15 GM TUBE 1 APPL TOPICAL ×2 (11:13→21:46)
--- NOTE | 2022-01-03 12:05 | P.PNPSI_ITS ---
Subjective Subjective Date of Service: 01/03/22 Reason For Visit: aggression/ paranoia Subjective Notes: Conditional Voluntary Interim History: Pt calmer, focused on discharge and asks for reassurance that he will be discharged in 2 weeks- 01/15. Pt reports sleeping and eating well. He has been taking medications as prescribed. Mostly in his room, minimal interaction with peers. No signs of aggression towards self or others. He denies SI/HI. He denies any thoughts of wanting to hurt other or himself. 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 Medication Compliance: Yes Side effects from medications: No Review of Systems Review of Systems Yes Unobtainable due to mental status Denies Sensory deficit (Neuro) Mental Status Exam Mental Status Exam Narrative: Appearance: casually groomed, fair hygiene in NAD Behavior:guarded, but less irritable psychomotor:no agitation or retardation noted Speech:clear, normal rate/rhythm/volume, spontaneous Thought process:some derailment Thought content:focused on discharge home and going to work Mood: fine Affect: guarded SI:denies HI:denies VH/AH:appears internally preoccupied Delusions:paranoid/grandiose delusions Insight/judgment:impaired x 2. Memory/cog: alert, oriented not to situation. Diagnostics Vital Signs (24Hr): Vital Signs - 24 hr 01/02/22 22:17 Temperature 97.7 F Pulse Rate 70 Blood Pressure 132/80 Pulse Oximetry 97 Oxygen Delivery Method Room Air BMI result Body Mass Index 31.1 Labs Results: 12/26/21 15:47 12/28/21 08:33 Medications Medications Current Medications Acetaminophen (Acetaminophen 325 Mg Tablet) 650 mg PO Q6H PRN PRN Reason: Headache/Pain Mild Scale (1-3) Al Hydroxide/Mg Hydroxide (Magnesium Hydrox/Alum Hydrox 30 Ml Oral.Susp) 30 ml PO Q6H PRN PRN Reason: Heartburn/Nausea Last Admin: 01/03/22 11:12 Dose: 30 ml Benztropine Mesylate (Benztropine Mesylate 1 Mg Tablet) 1 mg PO BID PRN PRN Reason: EPS Last Admin: 12/28/21 09:10 Dose: 1 mg Chlorpromazine HCl (Chlorpromazine Hcl 100 Mg Tablet) 100 mg PO Q4H PRN PRN Reason: agitation Last Admin: 12/29/21 22:58 Dose: 100 mg Haloperidol (Haloperidol 5 Mg Tablet) 5 mg PO BID [facility] Last Admin: 01/03/22 09:08 Dose: 5 mg Haloperidol Decanoate (Haloperidol Decanoate 50 Mg/Ml Ampul) 100 mg IM Q28D [facility] Last Admin: 01/01/22 14:39 Dose: 100 mg Hydroxyzine HCl (Hydroxyzine Hcl 50 Mg Tablet) 50 mg PO Q6H PRN PRN Reason: Anxiety [place] Carbonate ([place] Carbonate 300 Mg Capsule) 600 mg PO BID [facility] Last Admin: 01/03/22 09:08 Dose: 600 mg Magnesium Hydroxide (Milk Of Magnesia 30 Ml Oral.Susp) 30 ml PO DAILY PRN PRN Reason: Constipation Nicotine (Nicotine 21 Mg Patch.Td24) 21 mg TRANSDERMA DAILY [facility] Last Admin: 01/03/22 09:06 Dose: 21 mg Nicotine Polacrilex (Nicotine Polacrilex 2 Mg Gum) 4 mg BUCCAL Q2H PRN PRN Reason: Nicotine Cravings Last Admin: 12/30/21 19:51 Dose: 4 mg Trazodone HCl (Trazodone Hcl 100 Mg Tablet) 100 mg PO BEDTIME PRN PRN Reason: Insomnia Last Admin: 01/02/22 22:21 Dose: 100 mg Triamcinolone Acetonide (Triamcinolone Acet 0.025 % Cream 15 Gm Tube) 1 appl TOPICAL BID [facility]; Protocol Last Admin: 01/03/22 11:13 Dose: 1 appl Allergies Allergies Allergy/AdvReac Type Severity Reaction Status Date / Time No Known Allergies Allergy Verified 12/26/21 13:46 Assessment & Plan Assessment & Plan (1) Schizoaffective disorder, bipolar type: Status: Acute Code(s): F25.0 - Schizoaffective disorder, bipolar type Plan Mr. Perez is a 36 year-old male with hx of schizoaffective disorder, brought in on section 12 after mother reporting increase paranoia, agitation, threatening to kill her and his step father, paranoid towards neighbor. utox positive for cannabinoids. Pt presents as guarded, not fully forthcoming with extend of delusional content, irritable, asking to be discharge home. PLAN 1. Inpatient level of care due to imminent risk of harm to self and others due to paranoia, psychosis, increase aggression and impaired judgment and insight into need for psychiatric treatment. Section 12. 2. Schedule haldol 5mg po BID, will request records from [place] to obtain medication hx. 3. Aftercare planning. 12/29: no change in mgmt. 12/30: offer lithium for what may be ladonna. continue haldol. 12/31 continue current medications. 01/01 start Haldol Dec 100mg IM q28 days, continue oral haldol due to delay onset of action, continue lithium and clonazepam. 01/02 continue current medications. pending lithium level in few days. 01/03 continue current medications. I spent minutes with the patient and/or on the patient floor today, greater than?50% of which was spent counseling/coordinating care. Reason for contiued inpatient stay Substantial Risk for: harm to others and inability to function
[2022-01-03 18:00] VITALS: BP 118/63; PULSE 83; RESP 18; TEMP 36.6; O2SAT 97
[2022-01-04 08:56] LABS: Lithium 0.69 mmol/L (0.60-1.20)
[2022-01-04] MEDS: Triamcinolone Acet 0.025 % Cream 15 GM TUBE 1 APPL TOPICAL ×2 (09:32→20:41)
[2022-01-04] MEDS: Nicotine 21 MG PATCH.TD24 TRANSDERMA (09:32)
[2022-01-04] MEDS: Lithium Carbonate 300 MG CAPSULE 600 MG PO ×2 (09:33→20:41)
[2022-01-04] MEDS: HaloperidoL 5 MG TABLET PO ×2 (09:33→20:41)
[2022-01-04 10:15] VITALS: BP 134/92; PULSE 92; RESP 18; TEMP 36.4; O2SAT 96
--- NOTE | 2022-01-04 12:33 | HO.PSYCHPN ---
Subjective Subjective Date of Service: 01/04/22 Reason For Visit: aggression/ paranoia Subjective Notes: Conditional Voluntary Interim History: Pt continues to present as calmer, no signs of aggression towards self or others. He reports sleeping and eating well, which has been veried by nursing. Pt has been visible on the unit, minimally social with peers but appropriate. He was seen earlier laughing to himself and self dialoguing. He denies SI/HI. 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 Medication Compliance: Yes Side effects from medications: No Attending Groups: No Review of Systems Review of Systems Yes Unobtainable due to mental status Denies Sensory deficit (Neuro) Mental Status Exam Mental Status Exam Narrative: Appearance: casually groomed, fair hygiene in NAD Behavior:guarded, but less irritable psychomotor:no agitation or retardation noted Speech:clear, normal rate/rhythm/volume, spontaneous Thought process:some derailment Thought content:focused on discharge home and going to work Mood: fine Affect: guarded SI:denies HI:denies VH/AH:appears internally preoccupied Delusions:paranoid/grandiose delusions Insight/judgment:impaired x 2. Memory/cog: alert, oriented not to situation. Diagnostics Vital Signs (24Hr): Vital Signs - 24 hr 01/03/22 18:00 01/04/22 10:15 Temperature 97.9 F 97.5 F Pulse Rate 83 92 Respiratory Rate 18 18 Blood Pressure 118/63 134/92 H Pulse Oximetry 97 96 Oxygen Delivery Method Room Air Room Air BMI result Body Mass Index 38.5 Labs Results: 12/26/21 15:47 12/28/21 08:33 Labs: Laboratory Results - last 48 hr 01/04/22 08:24 [place] 0.69 Medications Medications Current Medications Acetaminophen (Acetaminophen 325 Mg Tablet) 650 mg PO Q6H PRN PRN Reason: Headache/Pain Mild Scale (1-3) Al Hydroxide/Mg Hydroxide (Magnesium Hydrox/Alum Hydrox 30 Ml Oral.Susp) 30 ml PO Q6H PRN PRN Reason: Heartburn/Nausea Last Admin: 01/03/22 11:12 Dose: 30 ml Benztropine Mesylate (Benztropine Mesylate 1 Mg Tablet) 1 mg PO BID PRN PRN Reason: EPS Last Admin: 12/28/21 09:10 Dose: 1 mg Chlorpromazine HCl (Chlorpromazine Hcl 100 Mg Tablet) 100 mg PO Q4H PRN PRN Reason: agitation Last Admin: 12/29/21 22:58 Dose: 100 mg Haloperidol (Haloperidol 5 Mg Tablet) 5 mg PO BID [facility] Last Admin: 01/04/22 09:33 Dose: 5 mg Haloperidol Decanoate (Haloperidol Decanoate 50 Mg/Ml Ampul) 100 mg IM Q28D [facility] Last Admin: 01/01/22 14:39 Dose: 100 mg Hydroxyzine HCl (Hydroxyzine Hcl 50 Mg Tablet) 50 mg PO Q6H PRN PRN Reason: Anxiety [place] Carbonate ([place] Carbonate 300 Mg Capsule) 600 mg PO BID [facility] Last Admin: 01/04/22 09:33 Dose: 600 mg Magnesium Hydroxide (Milk Of Magnesia 30 Ml Oral.Susp) 30 ml PO DAILY PRN PRN Reason: Constipation Nicotine (Nicotine 21 Mg Patch.Td24) 21 mg TRANSDERMA DAILY [facility] Last Admin: 01/04/22 09:32 Dose: 21 mg Nicotine Polacrilex (Nicotine Polacrilex 2 Mg Gum) 4 mg BUCCAL Q2H PRN PRN Reason: Nicotine Cravings Last Admin: 12/30/21 19:51 Dose: 4 mg Trazodone HCl (Trazodone Hcl 100 Mg Tablet) 100 mg PO BEDTIME PRN PRN Reason: Insomnia Last Admin: 01/02/22 22:21 Dose: 100 mg Triamcinolone Acetonide (Triamcinolone Acet 0.025 % Cream 15 Gm Tube) 1 appl TOPICAL BID [facility]; Protocol Last Admin: 01/04/22 09:32 Dose: 1 appl Allergies Allergies Allergy/AdvReac Type Severity Reaction Status Date / Time No Known Allergies Allergy Verified 12/26/21 13:46 Assessment & Plan Assessment & Plan (1) Schizoaffective disorder, bipolar type: Status: Acute Code(s): F25.0 - Schizoaffective disorder, bipolar type Plan Mr. Perez is a 36 year-old male with hx of schizoaffective disorder, brought in on section 12 after mother reporting increase paranoia, agitation, threatening to kill her and his step father, paranoid towards neighbor. utox positive for cannabinoids. Pt presents as guarded, not fully forthcoming with extend of delusional content, irritable, asking to be discharge home. PLAN 1. Inpatient level of care due to imminent risk of harm to self and others due to paranoia, psychosis, increase aggression and impaired judgment and insight into need for psychiatric treatment. Section 12. 2. Schedule haldol 5mg po BID, will request records from [place] to obtain medication hx. 3. Aftercare planning. 12/29: no change in mgmt. 12/30: offer lithium for what may be ladonna. continue haldol. 12/31 continue current medications. 01/01 start Haldol Dec 100mg IM q28 days, continue oral haldol due to delay onset of action, continue lithium and clonazepam. 01/02 continue current medications. pending lithium level in few days. 01/03 continue current medications. 01/04 continue current medications. I spent minutes with the patient and/or on the patient floor today, greater than?50% of which was spent counseling/coordinating care. Reason for contiued inpatient stay Substantial Risk for: harm to others
[2022-01-04] MEDS: traZODone HCL 100 MG TABLET PO ×2 (20:41→23:34)
[2022-01-04 20:45] VITALS: BP 121/63; PULSE 75; TEMP 36.7; O2SAT 96
[2022-01-04] MEDS: hydrOXYzine HCL 50 MG TABLET PO (23:34)
[2022-01-05 09:00] VITALS: BP 120/75; PULSE 76; RESP 18; TEMP 36.3; O2SAT 96
[2022-01-05] MEDS: HaloperidoL 5 MG TABLET PO ×2 (09:25→21:03)
[2022-01-05] MEDS: Lithium Carbonate 300 MG CAPSULE 600 MG PO ×2 (09:25→21:02)
[2022-01-05] MEDS: Nicotine 21 MG PATCH.TD24 TRANSDERMA (09:27)
--- NOTE | 2022-01-05 10:42 | HO.PSYCHPN ---
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, excited about dc date he said a provider wrote down for him 01/15 - denying current si/hi/psychosis Medication Compliance: Yes Side effects from medications: No Attending Groups: Intermittent Review of Systems Acute medical concerns: No Medical Review of Systems: unchanged Mental Status Exam Mental Status Exam Narrative: lying in bed, sheet over most of him but showing his face fully Patient Appearance: Appropriate Patient Orientation: Person, Place, Time and Situation Level of Consciousness: Awake Patient Behavior: Appropriate Mood Description: Calm Affect Description: Appropriate Patient Cognition Impaired: No Ability to Follow Directions: Fair Speech Pattern: Clear Delusions: Grandiose (nursing reports still talking about [employer] education) Thought Process: Intact and Goal Oriented Thought Content: positive for Intact Judgement: Fair Diagnostics Vital Signs (24Hr): Vital Signs - 24 hr 01/04/22 20:45 Temperature 98.0 F Pulse Rate 75 Blood Pressure 121/63 Pulse Oximetry 96 Oxygen Delivery Method Room Air BMI result Body Mass Index 38.5 Labs Results: 12/26/21 15:47 12/28/21 08:33 Labs: Laboratory Results - last 48 hr 01/04/22 08:24 [place] 0.69 Medications Medications Current Medications Acetaminophen (Acetaminophen 325 Mg Tablet) 650 mg PO Q6H PRN PRN Reason: Headache/Pain Mild Scale (1-3) Al Hydroxide/Mg Hydroxide (Magnesium Hydrox/Alum Hydrox 30 Ml Oral.Susp) 30 ml PO Q6H PRN PRN Reason: Heartburn/Nausea Last Admin: 01/03/22 11:12 Dose: 30 ml Benztropine Mesylate (Benztropine Mesylate 1 Mg Tablet) 1 mg PO BID PRN PRN Reason: EPS Last Admin: 12/28/21 09:10 Dose: 1 mg Chlorpromazine HCl (Chlorpromazine Hcl 100 Mg Tablet) 50 mg PO Q4H PRN PRN Reason: agitation Haloperidol (Haloperidol 5 Mg Tablet) 5 mg PO BID [facility] Last Admin: 01/05/22 09:25 Dose: 5 mg Haloperidol Decanoate (Haloperidol Decanoate 50 Mg/Ml Ampul) 100 mg IM Q28D [facility] Last Admin: 01/01/22 14:39 Dose: 100 mg Hydroxyzine HCl (Hydroxyzine Hcl 50 Mg Tablet) 50 mg PO Q6H PRN PRN Reason: Anxiety Last Admin: 01/04/22 23:34 Dose: 50 mg [place] Carbonate ([place] Carbonate 300 Mg Capsule) 600 mg PO BID [facility] Last Admin: 01/05/22 09:25 Dose: 600 mg Magnesium Hydroxide (Milk Of Magnesia 30 Ml Oral.Susp) 30 ml PO DAILY PRN PRN Reason: Constipation Nicotine (Nicotine 21 Mg Patch.Td24) 21 mg TRANSDERMA DAILY [facility] Last Admin: 01/05/22 09:27 Dose: 21 mg Nicotine Polacrilex (Nicotine Polacrilex 2 Mg Gum) 4 mg BUCCAL Q2H PRN PRN Reason: Nicotine Cravings Last Admin: 12/30/21 19:51 Dose: 4 mg Trazodone HCl (Trazodone Hcl 100 Mg Tablet) 100 mg PO BEDTIME PRN PRN Reason: Insomnia Last Admin: 01/04/22 23:34 Dose: 100 mg Triamcinolone Acetonide (Triamcinolone Acet 0.025 % Cream 15 Gm Tube) 1 appl TOPICAL BID [facility]; Protocol Last Admin: 01/04/22 20:41 Dose: 1 appl Allergies Allergies Allergy/AdvReac Type Severity Reaction Status Date / Time No Known Allergies Allergy Verified 12/26/21 13:46 Assessment & Plan Assessment & Plan (1) Schizoaffective disorder, bipolar type: Status: Acute Code(s): F25.0 - Schizoaffective disorder, bipolar type Plan Mr. Perez is a 36 year-old male with hx of schizoaffective disorder, brought in on section 12 after mother reporting increase paranoia, agitation, threatening to kill her and his step father, paranoid towards neighbor. utox positive for cannabinoids. Pt presents as guarded, not fully forthcoming with extend of delusional content, irritable, asking to be discharge home. PLAN 1. Inpatient level of care due to imminent risk of harm to self and others due to paranoia, psychosis, increase aggression and impaired judgment and insight into need for psychiatric treatment. Section 12. 2. Schedule haldol 5mg po BID, will request records from [place] to obtain medication hx. 3. Aftercare planning. 12/29: no change in mgmt. 12/30: offer lithium for what may be ladonna. continue haldol. 12/31 continue current medications. 01/01 start Haldol Dec 100mg IM q28 days, continue oral haldol due to delay onset of action, continue lithium and clonazepam. 01/02 continue current medications. pending lithium level in few days. 01/03 continue current medications. 01/04 continue current medications. 01/05 doing well on current- no s/e from haldol dec likely getting next shot 01/15 I spent minutes with the patient and/or on the patient floor today, greater than?50% of which was spent counseling/coordinating care. Patient educated on: medication risk/benefits Informed Consent: further education needed Reason for contiued inpatient stay Substantial Risk for: rapid decompensation
[2022-01-05] MEDS: Triamcinolone Acet 0.025 % Cream 15 GM TUBE 1 APPL TOPICAL ×2 (12:08→21:04)
[2022-01-05] MEDS: hydrOXYzine HCL 50 MG TABLET PO (21:03)
[2022-01-05] MEDS: traZODone HCL 100 MG TABLET PO (21:03)
[2022-01-05 21:11] VITALS: BP 121/62; PULSE 73; TEMP 36.8; O2SAT 98
[2022-01-06] MEDS: traZODone HCL 100 MG TABLET PO (02:23)
[2022-01-06 09:00] VITALS: BP 109/58; PULSE 73; RESP 18; TEMP 36.7; O2SAT 97
[2022-01-06] MEDS: Lithium Carbonate 300 MG CAPSULE 600 MG PO ×2 (09:10→20:28)
[2022-01-06] MEDS: HaloperidoL 5 MG TABLET PO ×2 (09:10→20:28)
[2022-01-06] MEDS: Nicotine 21 MG PATCH.TD24 TRANSDERMA (09:17)
[2022-01-06] MEDS: Triamcinolone Acet 0.025 % Cream 15 GM TUBE 1 APPL TOPICAL ×2 (09:17→20:29)
--- NOTE | 2022-01-06 09:39 | HO.PSYCHPN ---
Subjective Subjective Date of Service: 01/06/22 Reason For Visit: aggression/ paranoia Subjective Notes: Conditional Voluntary Healthcare Proxy: No Guardianship: No Medical Problems Affecting Mental Status: No Interim History: isolative, brighter affect, pleasant but not grandiose not going to groups will sit at meals and socialize with others feels good denies anything, listening to music denies si/hi/psychosis ran down the vela to show me his dc date and confirm it hasn't been changed (? date of may) Medication Compliance: Yes Side effects from medications: No Attending Groups: No Review of Systems Acute medical concerns: No Medical Review of Systems: unchanged Mental Status Exam Mental Status Exam Narrative: lying in bed, sheet over most of him but showing his face fully Patient Appearance: Appropriate Patient Orientation: Person, Place, Time and Situation Level of Consciousness: Awake Patient Behavior: Appropriate Mood Description: Calm Affect Description: Appropriate Patient Cognition Impaired: No Ability to Follow Directions: Fair Speech Pattern: Clear Delusions: Grandiose (nursing reports still talking about [employer] education) Thought Process: Intact and Goal Oriented Thought Content: positive for Intact Judgement: Fair Diagnostics Vital Signs (24Hr): Vital Signs - 24 hr 01/05/22 21:11 Temperature 98.3 F Pulse Rate 73 Blood Pressure 121/62 Pulse Oximetry 98 Oxygen Delivery Method Room Air BMI result Body Mass Index 38.5 Labs Results: 12/26/21 15:47 12/28/21 08:33 Medications Medications Current Medications Acetaminophen (Acetaminophen 325 Mg Tablet) 650 mg PO Q6H PRN PRN Reason: Headache/Pain Mild Scale (1-3) Al Hydroxide/Mg Hydroxide (Magnesium Hydrox/Alum Hydrox 30 Ml Oral.Susp) 30 ml PO Q6H PRN PRN Reason: Heartburn/Nausea Last Admin: 01/03/22 11:12 Dose: 30 ml Benztropine Mesylate (Benztropine Mesylate 1 Mg Tablet) 1 mg PO BID PRN PRN Reason: EPS Last Admin: 12/28/21 09:10 Dose: 1 mg Chlorpromazine HCl (Chlorpromazine Hcl 100 Mg Tablet) 50 mg PO Q4H PRN PRN Reason: agitation Haloperidol (Haloperidol 5 Mg Tablet) 5 mg PO BID [facility] Last Admin: 01/06/22 09:10 Dose: 5 mg Haloperidol Decanoate (Haloperidol Decanoate 50 Mg/Ml Ampul) 100 mg IM Q28D [facility] Last Admin: 01/01/22 14:39 Dose: 100 mg Hydroxyzine HCl (Hydroxyzine Hcl 50 Mg Tablet) 50 mg PO Q6H PRN PRN Reason: Anxiety Last Admin: 01/05/22 21:03 Dose: 50 mg [place] Carbonate ([place] Carbonate 300 Mg Capsule) 600 mg PO BID [facility] Last Admin: 01/06/22 09:10 Dose: 600 mg Magnesium Hydroxide (Milk Of Magnesia 30 Ml Oral.Susp) 30 ml PO DAILY PRN PRN Reason: Constipation Nicotine (Nicotine 21 Mg Patch.Td24) 21 mg TRANSDERMA DAILY [facility] Last Admin: 01/06/22 09:17 Dose: 21 mg Nicotine Polacrilex (Nicotine Polacrilex 2 Mg Gum) 4 mg BUCCAL Q2H PRN PRN Reason: Nicotine Cravings Last Admin: 12/30/21 19:51 Dose: 4 mg Trazodone HCl (Trazodone Hcl 100 Mg Tablet) 100 mg PO BEDTIME PRN PRN Reason: Insomnia Last Admin: 01/06/22 02:23 Dose: 100 mg Triamcinolone Acetonide (Triamcinolone Acet 0.025 % Cream 15 Gm Tube) 1 appl TOPICAL BID [facility]; Protocol Last Admin: 01/06/22 09:17 Dose: 1 appl Allergies Allergies Allergy/AdvReac Type Severity Reaction Status Date / Time No Known Allergies Allergy Verified 12/26/21 13:46 Assessment & Plan Assessment & Plan (1) Schizoaffective disorder, bipolar type: Status: Acute Code(s): F25.0 - Schizoaffective disorder, bipolar type Assessment and Plan: stabilizing on current plan Plan Mr. Perez is a 36 year-old male with hx of schizoaffective disorder, brought in on section 12 after mother reporting increase paranoia, agitation, threatening to kill her and his step father, paranoid towards neighbor. utox positive for cannabinoids. Pt presents as guarded, not fully forthcoming with extend of delusional content, irritable, asking to be discharge home. PLAN 1. Inpatient level of care due to imminent risk of harm to self and others due to paranoia, psychosis, increase aggression and impaired judgment and insight into need for psychiatric treatment. Section 12. 2. Schedule haldol 5mg po BID, will request records from [place] to obtain medication hx. 3. Aftercare planning. 12/29: no change in mgmt. 12/30: offer lithium for what may be ladonna. continue haldol. 12/31 continue current medications. 01/01 start Haldol Dec 100mg IM q28 days, continue oral haldol due to delay onset of action, continue lithium and clonazepam. 01/02 continue current medications. pending lithium level in few days. 01/03 continue current medications. 01/04 continue current medications. 01/05 doing well on current- no s/e from haldol dec likely getting next shot 01/15 01/06 ctp I spent minutes with the patient and/or on the patient floor today, greater than?50% of which was spent counseling/coordinating care. Patient educated on: medication risk/benefits Informed Consent: understands Reason for contiued inpatient stay Substantial Risk for: rapid decompensation
[2022-01-06 20:00] VITALS: BP 140/73; PULSE 78; RESP 18; TEMP 36.7; O2SAT 97
[2022-01-07] MEDS: Nicotine 21 MG PATCH.TD24 TRANSDERMA (08:36)
[2022-01-07] MEDS: Lithium Carbonate 300 MG CAPSULE 600 MG PO ×2 (08:38→21:05)
[2022-01-07] MEDS: HaloperidoL 5 MG TABLET PO ×2 (08:38→21:05)
[2022-01-07] MEDS: Triamcinolone Acet 0.025 % Cream 15 GM TUBE 1 APPL TOPICAL (08:40)
[2022-01-07 09:01] VITALS: BP 120/79; PULSE 74; RESP 16; TEMP 36.7; O2SAT 99
--- NOTE | 2022-01-07 10:36 | HO.PSYCHPN ---
Subjective Subjective Date of Service: 01/07/22 Reason For Visit: aggression/ paranoia Subjective Notes: Conditional Voluntary Interim History: Pt presents as pleasant. He denies SI/HI. No overt delusional content noted or reported. Pt with more pressing does continue to report that he works and has own apartment. However, he has not shown any signs of aggression towards self or others. He is mostly in his room, not very social with peers or staff but pleasant on approach. Carries with him paper that has d/c date 01/15, which will be d/c date if no concerns in terms of his safety. Per nursing, pt sleeping over night. No side effects with medications, no EPS. No aggression towards self or others. Medication Compliance: Yes Side effects from medications: No Attending Groups: No Review of Systems Review of Systems Yes Unobtainable due to mental status Denies Sensory deficit (Neuro) Mental Status Exam Mental Status Exam Narrative: Appearance: wearing hospital gown, fair hygiene, in NAD Behavior: cooperative, superficially at least. Speech: clear, no delayed in response, regular tone/volume, spontaneous Psychomotor: no agitation or retardation noted TP: goal oriented on discharge date TC: no overt delusional content AH/VH: denies Delusions: still residual of having job, own apartment, several degrees. SI: none HI: none Aggression: none insight/judgment: fair x 2. Memory/cog: alert, oriented x 3, not situation. Diagnostics Vital Signs (24Hr): Vital Signs - 24 hr 01/06/22 20:00 01/07/22 09:01 Temperature 98.1 F 98.1 F Pulse Rate 78 74 Respiratory Rate 18 16 Blood Pressure 140/73 H 120/79 Pulse Oximetry 97 99 Oxygen Delivery Method Room Air Room Air BMI result Body Mass Index 38.5 Labs Results: 12/26/21 15:47 12/28/21 08:33 Medications Medications Current Medications Acetaminophen (Acetaminophen 325 Mg Tablet) 650 mg PO Q6H PRN PRN Reason: Headache/Pain Mild Scale (1-3) Al Hydroxide/Mg Hydroxide (Magnesium Hydrox/Alum Hydrox 30 Ml Oral.Susp) 30 ml PO Q6H PRN PRN Reason: Heartburn/Nausea Last Admin: 01/03/22 11:12 Dose: 30 ml Benztropine Mesylate (Benztropine Mesylate 1 Mg Tablet) 1 mg PO BID PRN PRN Reason: EPS Last Admin: 12/28/21 09:10 Dose: 1 mg Chlorpromazine HCl (Chlorpromazine Hcl 100 Mg Tablet) 50 mg PO Q4H PRN PRN Reason: agitation Haloperidol (Haloperidol 5 Mg Tablet) 5 mg PO BID [facility] Last Admin: 01/07/22 08:38 Dose: 5 mg Haloperidol Decanoate (Haloperidol Decanoate 50 Mg/Ml Ampul) 100 mg IM Q28D [facility] Last Admin: 01/01/22 14:39 Dose: 100 mg Hydroxyzine HCl (Hydroxyzine Hcl 50 Mg Tablet) 50 mg PO Q6H PRN PRN Reason: Anxiety Last Admin: 01/05/22 21:03 Dose: 50 mg [place] Carbonate ([place] Carbonate 300 Mg Capsule) 600 mg PO BID [facility] Last Admin: 01/07/22 08:38 Dose: 600 mg Magnesium Hydroxide (Milk Of Magnesia 30 Ml Oral.Susp) 30 ml PO DAILY PRN PRN Reason: Constipation Nicotine (Nicotine 21 Mg Patch.Td24) 21 mg TRANSDERMA DAILY [facility] Last Admin: 01/07/22 08:36 Dose: 21 mg Nicotine Polacrilex (Nicotine Polacrilex 2 Mg Gum) 4 mg BUCCAL Q2H PRN PRN Reason: Nicotine Cravings Last Admin: 12/30/21 19:51 Dose: 4 mg Trazodone HCl (Trazodone Hcl 100 Mg Tablet) 100 mg PO BEDTIME PRN PRN Reason: Insomnia Last Admin: 01/06/22 02:23 Dose: 100 mg Triamcinolone Acetonide (Triamcinolone Acet 0.025 % Cream 15 Gm Tube) 1 appl TOPICAL BID [facility]; Protocol Last Admin: 01/07/22 08:40 Dose: 1 appl Allergies Allergies Allergy/AdvReac Type Severity Reaction Status Date / Time No Known Allergies Allergy Verified 12/26/21 13:46 Assessment & Plan Assessment & Plan (1) Schizoaffective disorder, bipolar type: Status: Acute Code(s): F25.0 - Schizoaffective disorder, bipolar type Assessment and Plan: stabilizing on current plan Plan Mr. Perez is a 36 year-old male with hx of schizoaffective disorder, brought in on section 12 after mother reporting increase paranoia, agitation, threatening to kill her and his step father, paranoid towards neighbor. utox positive for cannabinoids. Pt presents as guarded, not fully forthcoming with extend of delusional content, irritable, asking to be discharge home. PLAN 1. Inpatient level of care due to imminent risk of harm to self and others due to paranoia, psychosis, increase aggression and impaired judgment and insight into need for psychiatric treatment. Section 12. 2. Schedule haldol 5mg po BID, will request records from [place] to obtain medication hx. 3. Aftercare planning. 12/29: no change in mgmt. 12/30: offer lithium for what may be ladonna. continue haldol. 12/31 continue current medications. 01/01 start Haldol Dec 100mg IM q28 days, continue oral haldol due to delay onset of action, continue lithium and clonazepam. 01/02 continue current medications. pending lithium level in few days. 01/03 continue current medications. 01/04 continue current medications. 01/05 doing well on current- no s/e from haldol dec likely getting next shot 01/15 01/06 ctp 01/07 continue current meds, recheck lithium on 01/11, plan d/c on 01/15. I spent _25 minutes with the patient and/or on the patient floor today, greater than?50% of which was spent counseling/coordinating care. Reason for contiued inpatient stay Substantial Risk for: harm to others and inability to function
[2022-01-07 18:00] VITALS: BP 131/75; PULSE 69; RESP 20; O2SAT 98
[2022-01-08 08:30] VITALS: BP 131/72; PULSE 74; RESP 18; TEMP 36.8; O2SAT 97
[2022-01-08] MEDS: Nicotine 21 MG PATCH.TD24 TRANSDERMA (08:31)
[2022-01-08] MEDS: Lithium Carbonate 300 MG CAPSULE 600 MG PO ×2 (08:32→20:43)
[2022-01-08] MEDS: HaloperidoL 5 MG TABLET PO ×2 (08:32→20:43)
--- NOTE | 2022-01-08 09:03 | HO.PSYCHPN ---
Subjective Subjective Date of Service: 01/08/22 Reason For Visit: aggression/ paranoia Subjective Notes: Conditional Voluntary Interim History: Pt continues to present as polite, asking staff to reassure him about discharge date next week. He reports sleeping and eating well. He continues to report that he has a job, that he called his boss yesterday and he was told that the job still is his. He denies SI/HI. He is taking medications as prescribed. No aggression towards self or others. Medication Compliance: Yes Side effects from medications: No Attending Groups: Intermittent Review of Systems Review of Systems Yes Unobtainable due to mental status Denies Sensory deficit (Neuro) Mental Status Exam Mental Status Exam Narrative: Appearance: wearing hospital gown, fair hygiene, in NAD Behavior: cooperative, superficially at least. Speech: clear, no delayed in response, regular tone/volume, spontaneous Psychomotor: no agitation or retardation noted TP: goal oriented on discharge date TC: no overt delusional content AH/VH: denies Delusions: still residual of having job, own apartment, several degrees. SI: none HI: none Aggression: none insight/judgment: fair x 2. Memory/cog: alert, oriented x 3, not situation. Patient Appearance: Appropriate Patient Orientation: Person, Place, Time and Situation Level of Consciousness: Awake Patient Behavior: Appropriate Mood Description: Calm Affect Description: Appropriate Patient Cognition Impaired: No Ability to Follow Directions: Fair Speech Pattern: Clear Diagnostics Vital Signs (24Hr): Vital Signs - 24 hr 01/07/22 18:00 01/08/22 08:30 Temperature 98.2 F Pulse Rate 69 74 Respiratory Rate 20 18 Blood Pressure 131/75 131/72 Pulse Oximetry 98 97 Oxygen Delivery Method Room Air Room Air BMI result Body Mass Index 38.5 Labs Results: 12/26/21 15:47 12/28/21 08:33 Medications Medications Current Medications Acetaminophen (Acetaminophen 325 Mg Tablet) 650 mg PO Q6H PRN PRN Reason: Headache/Pain Mild Scale (1-3) Al Hydroxide/Mg Hydroxide (Magnesium Hydrox/Alum Hydrox 30 Ml Oral.Susp) 30 ml PO Q6H PRN PRN Reason: Heartburn/Nausea Last Admin: 01/03/22 11:12 Dose: 30 ml Benztropine Mesylate (Benztropine Mesylate 1 Mg Tablet) 1 mg PO BID PRN PRN Reason: EPS Last Admin: 12/28/21 09:10 Dose: 1 mg Chlorpromazine HCl (Chlorpromazine Hcl 100 Mg Tablet) 50 mg PO Q4H PRN PRN Reason: agitation Haloperidol (Haloperidol 5 Mg Tablet) 5 mg PO BID [facility] Last Admin: 01/08/22 08:32 Dose: 5 mg Haloperidol Decanoate (Haloperidol Decanoate 50 Mg/Ml Ampul) 100 mg IM Q28D [facility] Last Admin: 01/01/22 14:39 Dose: 100 mg Hydroxyzine HCl (Hydroxyzine Hcl 50 Mg Tablet) 50 mg PO Q6H PRN PRN Reason: Anxiety Last Admin: 01/05/22 21:03 Dose: 50 mg [place] Carbonate ([place] Carbonate 300 Mg Capsule) 600 mg PO BID [facility] Last Admin: 01/08/22 08:32 Dose: 600 mg Magnesium Hydroxide (Milk Of Magnesia 30 Ml Oral.Susp) 30 ml PO DAILY PRN PRN Reason: Constipation Nicotine (Nicotine 21 Mg Patch.Td24) 21 mg TRANSDERMA DAILY [facility] Last Admin: 01/08/22 08:31 Dose: 21 mg Nicotine Polacrilex (Nicotine Polacrilex 2 Mg Gum) 4 mg BUCCAL Q2H PRN PRN Reason: Nicotine Cravings Last Admin: 12/30/21 19:51 Dose: 4 mg Trazodone HCl (Trazodone Hcl 100 Mg Tablet) 100 mg PO BEDTIME PRN PRN Reason: Insomnia Last Admin: 01/06/22 02:23 Dose: 100 mg Triamcinolone Acetonide (Triamcinolone Acet 0.025 % Cream 15 Gm Tube) 1 appl TOPICAL BID [facility]; Protocol Last Admin: 01/08/22 08:33 Dose: Not Given Allergies Allergies Allergy/AdvReac Type Severity Reaction Status Date / Time No Known Allergies Allergy Verified 12/26/21 13:46 Assessment & Plan Assessment & Plan (1) Schizoaffective disorder, bipolar type: Status: Acute Code(s): F25.0 - Schizoaffective disorder, bipolar type Assessment and Plan: stabilizing on current plan Plan Mr. Perez is a 36 year-old male with hx of schizoaffective disorder, brought in on section 12 after mother reporting increase paranoia, agitation, threatening to kill her and his step father, paranoid towards neighbor. utox positive for cannabinoids. Pt presents as guarded, not fully forthcoming with extend of delusional content, irritable, asking to be discharge home. PLAN 1. Inpatient level of care due to imminent risk of harm to self and others due to paranoia, psychosis, increase aggression and impaired judgment and insight into need for psychiatric treatment. Section 12. 2. Schedule haldol 5mg po BID, will request records from [place] to obtain medication hx. 3. Aftercare planning. 12/29: no change in mgmt. 12/30: offer lithium for what may be ladonna. continue haldol. 12/31 continue current medications. 01/01 start Haldol Dec 100mg IM q28 days, continue oral haldol due to delay onset of action, continue lithium and clonazepam. 01/02 continue current medications. pending lithium level in few days. 01/03 continue current medications. 01/04 continue current medications. 01/05 doing well on current- no s/e from haldol dec likely getting next shot 01/15 01/06 ctp 01/07 continue current meds, recheck lithium on 01/11, plan d/c on 01/15. 01/08 continue current medications. I spent minutes with the patient and/or on the patient floor today, greater than?50% of which was spent counseling/coordinating care. Reason for contiued inpatient stay Substantial Risk for: harm to others and inability to function
[2022-01-08 18:00] VITALS: BP 121/79; PULSE 73; RESP 16; TEMP 36.7; O2SAT 95
[2022-01-09] MEDS: HaloperidoL 5 MG TABLET PO ×2 (09:13→21:28)
[2022-01-09] MEDS: Lithium Carbonate 300 MG CAPSULE 600 MG PO ×2 (09:13→21:28)
[2022-01-09] MEDS: Nicotine 21 MG PATCH.TD24 TRANSDERMA (09:14)
[2022-01-09 09:15] VITALS: BP 126/93; PULSE 76; RESP 18; TEMP 36.8; O2SAT 98
--- NOTE | 2022-01-09 11:06 | HO.PSYCHPN ---
Subjective Subjective Date of Service: 01/09/22 Reason For Visit: aggression/ paranoia Subjective Notes: Conditional Voluntary Interim History: no change. Pt continues to present as polite, asking staff to reassure him about discharge date next week. He reports sleeping and eating well. He continues to report that he has a job, that he called his boss yesterday and he was told that the job still is his. He denies SI/HI. He is taking medications as prescribed. No aggression towards self or others. Medication Compliance: Yes Side effects from medications: No Review of Systems Review of Systems Yes Unobtainable due to mental status Denies Sensory deficit (Neuro) Mental Status Exam Mental Status Exam Narrative: Appearance: wearing hospital gown, fair hygiene, in NAD Behavior: cooperative, superficially at least. Speech: clear, no delayed in response, regular tone/volume, spontaneous Psychomotor: no agitation or retardation noted TP: goal oriented on discharge date TC: no overt delusional content AH/VH: denies Delusions: still residual of having job, own apartment, several degrees. SI: none HI: none Aggression: none insight/judgment: fair x 2. Memory/cog: alert, oriented x 3, not situation. Patient Appearance: Appropriate Patient Orientation: Person, Place, Time and Situation Level of Consciousness: Awake Patient Behavior: Appropriate Mood Description: Calm Affect Description: Appropriate Patient Cognition Impaired: No Ability to Follow Directions: Fair Speech Pattern: Clear Diagnostics Vital Signs (24Hr): Vital Signs - 24 hr 01/09/22 20:45 Temperature 98.1 F Pulse Rate 75 Respiratory Rate 18 Blood Pressure 138/87 Pulse Oximetry 97 Oxygen Delivery Method Room Air BMI result Body Mass Index 38.5 Labs Results: 12/26/21 15:47 12/28/21 08:33 Medications Medications Current Medications Acetaminophen (Acetaminophen 325 Mg Tablet) 650 mg PO Q6H PRN PRN Reason: Headache/Pain Mild Scale (1-3) Al Hydroxide/Mg Hydroxide (Magnesium Hydrox/Alum Hydrox 30 Ml Oral.Susp) 30 ml PO Q6H PRN PRN Reason: Heartburn/Nausea Last Admin: 01/03/22 11:12 Dose: 30 ml Benztropine Mesylate (Benztropine Mesylate 1 Mg Tablet) 1 mg PO BID PRN PRN Reason: EPS Last Admin: 12/28/21 09:10 Dose: 1 mg Chlorpromazine HCl (Chlorpromazine Hcl 100 Mg Tablet) 50 mg PO Q4H PRN PRN Reason: agitation Haloperidol (Haloperidol 5 Mg Tablet) 5 mg PO BID [facility] Last Admin: 01/10/22 08:37 Dose: 5 mg Haloperidol Decanoate (Haloperidol Decanoate 50 Mg/Ml Ampul) 100 mg IM Q28D [facility] Last Admin: 01/01/22 14:39 Dose: 100 mg Hydroxyzine HCl (Hydroxyzine Hcl 50 Mg Tablet) 50 mg PO Q6H PRN PRN Reason: Anxiety Last Admin: 01/05/22 21:03 Dose: 50 mg [place] Carbonate ([place] Carbonate 300 Mg Capsule) 600 mg PO BID [facility] Last Admin: 01/10/22 08:37 Dose: 600 mg Magnesium Hydroxide (Milk Of Magnesia 30 Ml Oral.Susp) 30 ml PO DAILY PRN PRN Reason: Constipation Nicotine (Nicotine 21 Mg Patch.Td24) 21 mg TRANSDERMA DAILY [facility] Last Admin: 01/10/22 08:38 Dose: 21 mg Nicotine Polacrilex (Nicotine Polacrilex 2 Mg Gum) 4 mg BUCCAL Q2H PRN PRN Reason: Nicotine Cravings Last Admin: 12/30/21 19:51 Dose: 4 mg Trazodone HCl (Trazodone Hcl 100 Mg Tablet) 100 mg PO BEDTIME PRN PRN Reason: Insomnia Last Admin: 01/06/22 02:23 Dose: 100 mg Triamcinolone Acetonide (Triamcinolone Acet 0.025 % Cream 15 Gm Tube) 1 appl TOPICAL BID [facility]; Protocol Last Admin: 01/10/22 09:04 Dose: Not Given Allergies Allergies Allergy/AdvReac Type Severity Reaction Status Date / Time No Known Allergies Allergy Verified 12/26/21 13:46 Assessment & Plan Assessment & Plan (1) Schizoaffective disorder, bipolar type: Status: Acute Code(s): F25.0 - Schizoaffective disorder, bipolar type Assessment and Plan: stabilizing on current plan Plan Mr. Perez is a 36 year-old male with hx of schizoaffective disorder, brought in on section 12 after mother reporting increase paranoia, agitation, threatening to kill her and his step father, paranoid towards neighbor. utox positive for cannabinoids. Pt presents as guarded, not fully forthcoming with extend of delusional content, irritable, asking to be discharge home. PLAN 1. Inpatient level of care due to imminent risk of harm to self and others due to paranoia, psychosis, increase aggression and impaired judgment and insight into need for psychiatric treatment. Section 12. 2. Schedule haldol 5mg po BID, will request records from [place] to obtain medication hx. 3. Aftercare planning. 12/29: no change in mgmt. 12/30: offer lithium for what may be ladonna. continue haldol. 12/31 continue current medications. 01/01 start Haldol Dec 100mg IM q28 days, continue oral haldol due to delay onset of action, continue lithium and clonazepam. 01/02 continue current medications. pending lithium level in few days. 01/03 continue current medications. 01/04 continue current medications. 01/05 doing well on current- no s/e from haldol dec likely getting next shot 01/15 01/06 ctp 01/07 continue current meds, recheck lithium on 01/11, plan d/c on 01/15. 01/08 continue current medications. I spent minutes with the patient and/or on the patient floor today, greater than?50% of which was spent counseling/coordinating care. Reason for contiued inpatient stay Substantial Risk for: inability to function
[2022-01-09 20:45] VITALS: BP 138/87; PULSE 75; RESP 18; TEMP 36.7; O2SAT 97
[2022-01-10 07:00] VITALS: BMI 38.6
[2022-01-10 08:30] VITALS: BP 115/65; PULSE 70; RESP 18; TEMP 36.8; O2SAT 97
[2022-01-10] MEDS: Lithium Carbonate 300 MG CAPSULE 600 MG PO ×2 (08:37→20:29)
[2022-01-10] MEDS: HaloperidoL 5 MG TABLET PO ×2 (08:37→20:29)
[2022-01-10] MEDS: Nicotine 21 MG PATCH.TD24 TRANSDERMA (08:38)
--- NOTE | 2022-01-10 12:00 | HO.PSYCHPN ---
Subjective Subjective Date of Service: 01/10/22 Reason For Visit: aggression/ paranoia Subjective Notes: Conditional Voluntary Interim History: Pt reports he retracted 3 day notice to speak with mom jose armando I want to give her a surprise when I come home! Pt informed that mother is already aware that he is discharging on and has agreed for pt to return to her house. Pt denies SI/HI. No VH/AH. No overt delusional content report other than he continues to insist he has a job, his own apartment. He has not been aggressive to others or himself. He has been taking medications as prescribed. No side effects noted. Medication Compliance: Yes Side effects from medications: No Review of Systems Review of Systems Yes Unobtainable due to mental status Denies Sensory deficit (Neuro) Mental Status Exam Mental Status Exam Narrative: Appearance: wearing hospital gown, fair hygiene, in NAD Behavior: cooperative, superficially at least. Speech: clear, no delayed in response, regular tone/volume, spontaneous Psychomotor: no agitation or retardation noted TP: goal oriented on discharge date TC: no overt delusional content AH/VH: denies Delusions: still residual of having job, own apartment, several degrees. SI: none HI: none Aggression: none insight/judgment: fair x 2. Memory/cog: alert, oriented x 3, not situation. Patient Appearance: Appropriate Patient Orientation: Person, Place, Time and Situation Level of Consciousness: Awake Patient Behavior: Appropriate Mood Description: Calm Affect Description: Appropriate Patient Cognition Impaired: No Ability to Follow Directions: Fair Speech Pattern: Clear Diagnostics Vital Signs (24Hr): Vital Signs - 24 hr 01/10/22 19:22 Temperature 97.9 F Pulse Rate 84 Respiratory Rate 18 Blood Pressure 137/85 Pulse Oximetry 97 Oxygen Delivery Method Room Air BMI result Body Mass Index 38.6 Labs Results: 12/26/21 15:47 12/28/21 08:33 Medications Medications Current Medications Acetaminophen (Acetaminophen 325 Mg Tablet) 650 mg PO Q6H PRN PRN Reason: Headache/Pain Mild Scale (1-3) Al Hydroxide/Mg Hydroxide (Magnesium Hydrox/Alum Hydrox 30 Ml Oral.Susp) 30 ml PO Q6H PRN PRN Reason: Heartburn/Nausea Last Admin: 01/03/22 11:12 Dose: 30 ml Benztropine Mesylate (Benztropine Mesylate 1 Mg Tablet) 1 mg PO BID PRN PRN Reason: EPS Last Admin: 12/28/21 09:10 Dose: 1 mg Chlorpromazine HCl (Chlorpromazine Hcl 100 Mg Tablet) 50 mg PO Q4H PRN PRN Reason: agitation Haloperidol (Haloperidol 5 Mg Tablet) 5 mg PO BID [facility] Last Admin: 01/10/22 20:29 Dose: 5 mg Haloperidol Decanoate (Haloperidol Decanoate 50 Mg/Ml Ampul) 100 mg IM Q28D [facility] Last Admin: 01/01/22 14:39 Dose: 100 mg Hydroxyzine HCl (Hydroxyzine Hcl 50 Mg Tablet) 50 mg PO Q6H PRN PRN Reason: Anxiety Last Admin: 01/05/22 21:03 Dose: 50 mg [place] Carbonate ([place] Carbonate 300 Mg Capsule) 600 mg PO BID [facility] Last Admin: 01/10/22 20:29 Dose: 600 mg Magnesium Hydroxide (Milk Of Magnesia 30 Ml Oral.Susp) 30 ml PO DAILY PRN PRN Reason: Constipation Nicotine (Nicotine 21 Mg Patch.Td24) 21 mg TRANSDERMA DAILY [facility] Last Admin: 01/10/22 08:38 Dose: 21 mg Nicotine Polacrilex (Nicotine Polacrilex 2 Mg Gum) 4 mg BUCCAL Q2H PRN PRN Reason: Nicotine Cravings Last Admin: 12/30/21 19:51 Dose: 4 mg Trazodone HCl (Trazodone Hcl 100 Mg Tablet) 100 mg PO BEDTIME PRN PRN Reason: Insomnia Last Admin: 01/06/22 02:23 Dose: 100 mg Triamcinolone Acetonide (Triamcinolone Acet 0.025 % Cream 15 Gm Tube) 1 appl TOPICAL BID [facility]; Protocol Last Admin: 01/10/22 22:38 Dose: Not Given Allergies Allergies Allergy/AdvReac Type Severity Reaction Status Date / Time No Known Allergies Allergy Verified 12/26/21 13:46 Assessment & Plan Assessment & Plan (1) Schizoaffective disorder, bipolar type: Status: Acute Code(s): F25.0 - Schizoaffective disorder, bipolar type Assessment and Plan: stabilizing on current plan Plan Mr. Perez is a 36 year-old male with hx of schizoaffective disorder, brought in on section 12 after mother reporting increase paranoia, agitation, threatening to kill her and his step father, paranoid towards neighbor. utox positive for cannabinoids. Pt presents as guarded, not fully forthcoming with extend of delusional content, irritable, asking to be discharge home. PLAN 1. Inpatient level of care due to imminent risk of harm to self and others due to paranoia, psychosis, increase aggression and impaired judgment and insight into need for psychiatric treatment. Section 12. 2. Schedule haldol 5mg po BID, will request records from [place] to obtain medication hx. 3. Aftercare planning. 12/29: no change in mgmt. 12/30: offer lithium for what may be ladonna. continue haldol. 12/31 continue current medications. 01/01 start Haldol Dec 100mg IM q28 days, continue oral haldol due to delay onset of action, continue lithium and clonazepam. 01/02 continue current medications. pending lithium level in few days. 01/03 continue current medications. 01/04 continue current medications. 01/05 doing well on current- no s/e from haldol dec likely getting next shot 01/15 01/06 ctp 01/07 continue current meds, recheck lithium on 01/11, plan d/c on 01/15. 01/08 continue current medications. 01/09 continue meds 01/10 continue current meds. d/c 01/15 I spent minutes with the patient and/or on the patient floor today, greater than?50% of which was spent counseling/coordinating care. Reason for contiued inpatient stay Substantial Risk for: harm to others
[2022-01-10 19:22] VITALS: BP 137/85; PULSE 84; RESP 18; TEMP 36.6; O2SAT 97
[2022-01-11 09:20] LABS: Lithium 0.57 mmol/L (0.60-1.20)
[2022-01-11 09:30] VITALS: BP 133/97; PULSE 75; RESP 16; TEMP 36.6; O2SAT 99
[2022-01-11] MEDS: HaloperidoL 5 MG TABLET PO ×2 (09:31→20:23)
[2022-01-11] MEDS: Nicotine 21 MG PATCH.TD24 TRANSDERMA (09:31)
[2022-01-11] MEDS: Lithium Carbonate 300 MG CAPSULE 600 MG PO ×2 (09:31→20:23)
[2022-01-11 09:50] LABS: TSH reflex Free T4 2.98 uIU/mL (0.32-4.0)
--- NOTE | 2022-01-11 12:07 | HO.PSYCHPN ---
Subjective Subjective Date of Service: 01/11/22 Reason For Visit: aggression/ paranoia Subjective Notes: Conditional Voluntary Interim History: Pt reports he is sleeping well. He denies feeling restless or RLS at night. He reports trazodone helps with sleep. 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 He denies SI/HI. He is looking forward to d/c next week. Per nursing, no aggression. Medication Compliance: Yes Side effects from medications: No Attending Groups: No Review of Systems Review of Systems Yes Unobtainable due to mental status Denies Sensory deficit (Neuro) Mental Status Exam Mental Status Exam Narrative: Appearance: wearing hospital gown, fair hygiene, in NAD Behavior: cooperative, superficially at least. Speech: clear, no delayed in response, regular tone/volume, spontaneous Psychomotor: no agitation or retardation noted TP: goal oriented on discharge date TC: no overt delusional content AH/VH: denies Delusions: still residual of having job, own apartment, several degrees. SI: none HI: none Aggression: none insight/judgment: fair x 2. Memory/cog: alert, oriented x 3, not situation. Patient Appearance: Appropriate Patient Orientation: Person, Place, Time and Situation Level of Consciousness: Awake Patient Behavior: Appropriate Mood Description: Calm Affect Description: Appropriate Patient Cognition Impaired: No Ability to Follow Directions: Fair Speech Pattern: Clear Diagnostics Vital Signs (24Hr): Vital Signs - 24 hr 01/12/22 20:47 01/13/22 08:08 Temperature 97.8 F 97.6 F Pulse Rate 78 71 Respiratory Rate 16 18 Blood Pressure 109/61 128/73 Pulse Oximetry 100 98 Oxygen Delivery Method Room Air Room Air BMI result Body Mass Index 38.6 Labs Results: 12/26/21 15:47 12/28/21 08:33 Medications Medications Current Medications Acetaminophen (Acetaminophen 325 Mg Tablet) 650 mg PO Q6H PRN PRN Reason: Headache/Pain Mild Scale (1-3) Al Hydroxide/Mg Hydroxide (Magnesium Hydrox/Alum Hydrox 30 Ml Oral.Susp) 30 ml PO Q6H PRN PRN Reason: Heartburn/Nausea Last Admin: 01/03/22 11:12 Dose: 30 ml Benztropine Mesylate (Benztropine Mesylate 1 Mg Tablet) 1 mg PO BID PRN PRN Reason: EPS Last Admin: 12/28/21 09:10 Dose: 1 mg Chlorpromazine HCl (Chlorpromazine Hcl 100 Mg Tablet) 50 mg PO Q4H PRN PRN Reason: agitation Haloperidol (Haloperidol 5 Mg Tablet) 5 mg PO BID [facility] Last Admin: 01/13/22 08:12 Dose: 5 mg Haloperidol Decanoate (Haloperidol Decanoate 50 Mg/Ml Ampul) 100 mg IM Q28D [facility] Last Admin: 01/01/22 14:39 Dose: 100 mg Hydroxyzine HCl (Hydroxyzine Hcl 50 Mg Tablet) 50 mg PO Q6H PRN PRN Reason: Anxiety Last Admin: 01/05/22 21:03 Dose: 50 mg [place] Carbonate ([place] Carbonate 300 Mg Capsule) 600 mg PO BID [facility] Last Admin: 01/13/22 08:12 Dose: 600 mg Magnesium Hydroxide (Milk Of Magnesia 30 Ml Oral.Susp) 30 ml PO DAILY PRN PRN Reason: Constipation Nicotine (Nicotine 21 Mg Patch.Td24) 21 mg TRANSDERMA DAILY [facility] Last Admin: 01/13/22 08:11 Dose: 21 mg Nicotine Polacrilex (Nicotine Polacrilex 2 Mg Gum) 4 mg BUCCAL Q2H PRN PRN Reason: Nicotine Cravings Last Admin: 12/30/21 19:51 Dose: 4 mg Trazodone HCl (Trazodone Hcl 100 Mg Tablet) 100 mg PO BEDTIME PRN PRN Reason: Insomnia Last Admin: 01/06/22 02:23 Dose: 100 mg Triamcinolone Acetonide (Triamcinolone Acet 0.025 % Cream 15 Gm Tube) 1 appl TOPICAL BID [facility]; Protocol Last Admin: 01/13/22 08:12 Dose: Not Given Allergies Allergies Allergy/AdvReac Type Severity Reaction Status Date / Time No Known Allergies Allergy Verified 12/26/21 13:46 Assessment & Plan Assessment & Plan (1) Schizoaffective disorder, bipolar type: Status: Acute Code(s): F25.0 - Schizoaffective disorder, bipolar type Assessment and Plan: stabilizing on current plan Plan Mr. Perez is a 36 year-old male with hx of schizoaffective disorder, brought in on section 12 after mother reporting increase paranoia, agitation, threatening to kill her and his step father, paranoid towards neighbor. utox positive for cannabinoids. Pt presents as guarded, not fully forthcoming with extend of delusional content, irritable, asking to be discharge home. PLAN 1. Inpatient level of care due to imminent risk of harm to self and others due to paranoia, psychosis, increase aggression and impaired judgment and insight into need for psychiatric treatment. Section 12. 2. Schedule haldol 5mg po BID, will request records from [place] to obtain medication hx. 3. Aftercare planning. 12/29: no change in mgmt. 12/30: offer lithium for what may be ladonna. continue haldol. 12/31 continue current medications. 01/01 start Haldol Dec 100mg IM q28 days, continue oral haldol due to delay onset of action, continue lithium and clonazepam. 01/02 continue current medications. pending lithium level in few days. 01/03 continue current medications. 01/04 continue current medications. 01/05 doing well on current- no s/e from haldol dec likely getting next shot 01/15 01/06 ctp 01/07 continue current meds, recheck lithium on 01/11, plan d/c on 01/15. 01/08 continue current medications. 01/09 continue meds 01/10 continue current meds. d/c 01/15 01/11 continue current medications. I spent minutes with the patient and/or on the patient floor today, greater than?50% of which was spent counseling/coordinating care. Reason for contiued inpatient stay Substantial Risk for: inability to function
[2022-01-11 20:22] VITALS: BP 135/83; PULSE 81; RESP 18; TEMP 36.4; O2SAT 99
[2022-01-12 08:43] VITALS: BP 137/89; PULSE 75; RESP 17; TEMP 36.6; O2SAT 98
[2022-01-12] MEDS: Nicotine 21 MG PATCH.TD24 TRANSDERMA (08:46)
[2022-01-12] MEDS: HaloperidoL 5 MG TABLET PO ×2 (08:47→20:42)
[2022-01-12] MEDS: Lithium Carbonate 300 MG CAPSULE 600 MG PO ×2 (08:47→20:42)
--- NOTE | 2022-01-12 11:09 | HO.PSYCHPN ---
Subjective Subjective Date of Service: 01/12/22 Reason For Visit: aggression/ paranoia Subjective Notes: Conditional Voluntary Interim History: Pt continues to report he is sleeping well. He denies feeling restless or RLS at night. He reports trazodone helps with sleep. 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 He denies SI/HI. He is looking forward to d/c next week. Per nursing, no aggression. Medication Compliance: Yes Side effects from medications: No Attending Groups: No Review of Systems Review of Systems Yes Unobtainable due to mental status Denies Sensory deficit (Neuro) Mental Status Exam Mental Status Exam Narrative: Appearance: wearing hospital gown, fair hygiene, in NAD Behavior: cooperative, superficially at least. Speech: clear, no delayed in response, regular tone/volume, spontaneous Psychomotor: no agitation or retardation noted TP: goal oriented on discharge date TC: no overt delusional content AH/VH: denies Delusions: still residual of having job, own apartment, several degrees. SI: none HI: none Aggression: none insight/judgment: fair x 2. Memory/cog: alert, oriented x 3, not situation. Diagnostics Vital Signs (24Hr): Vital Signs - 24 hr 01/12/22 20:47 01/13/22 08:08 Temperature 97.8 F 97.6 F Pulse Rate 78 71 Respiratory Rate 16 18 Blood Pressure 109/61 128/73 Pulse Oximetry 100 98 Oxygen Delivery Method Room Air Room Air BMI result Body Mass Index 38.6 Labs Results: 12/26/21 15:47 12/28/21 08:33 Medications Medications Current Medications Acetaminophen (Acetaminophen 325 Mg Tablet) 650 mg PO Q6H PRN PRN Reason: Headache/Pain Mild Scale (1-3) Al Hydroxide/Mg Hydroxide (Magnesium Hydrox/Alum Hydrox 30 Ml Oral.Susp) 30 ml PO Q6H PRN PRN Reason: Heartburn/Nausea Last Admin: 01/03/22 11:12 Dose: 30 ml Benztropine Mesylate (Benztropine Mesylate 1 Mg Tablet) 1 mg PO BID PRN PRN Reason: EPS Last Admin: 12/28/21 09:10 Dose: 1 mg Chlorpromazine HCl (Chlorpromazine Hcl 100 Mg Tablet) 50 mg PO Q4H PRN PRN Reason: agitation Haloperidol (Haloperidol 5 Mg Tablet) 5 mg PO BID [facility] Last Admin: 01/13/22 08:12 Dose: 5 mg Haloperidol Decanoate (Haloperidol Decanoate 50 Mg/Ml Ampul) 100 mg IM Q28D [facility] Last Admin: 01/01/22 14:39 Dose: 100 mg Hydroxyzine HCl (Hydroxyzine Hcl 50 Mg Tablet) 50 mg PO Q6H PRN PRN Reason: Anxiety Last Admin: 01/05/22 21:03 Dose: 50 mg [place] Carbonate ([place] Carbonate 300 Mg Capsule) 600 mg PO BID [facility] Last Admin: 01/13/22 08:12 Dose: 600 mg Magnesium Hydroxide (Milk Of Magnesia 30 Ml Oral.Susp) 30 ml PO DAILY PRN PRN Reason: Constipation Nicotine (Nicotine 21 Mg Patch.Td24) 21 mg TRANSDERMA DAILY [facility] Last Admin: 01/13/22 08:11 Dose: 21 mg Nicotine Polacrilex (Nicotine Polacrilex 2 Mg Gum) 4 mg BUCCAL Q2H PRN PRN Reason: Nicotine Cravings Last Admin: 12/30/21 19:51 Dose: 4 mg Trazodone HCl (Trazodone Hcl 100 Mg Tablet) 100 mg PO BEDTIME PRN PRN Reason: Insomnia Last Admin: 01/06/22 02:23 Dose: 100 mg Triamcinolone Acetonide (Triamcinolone Acet 0.025 % Cream 15 Gm Tube) 1 appl TOPICAL BID [facility]; Protocol Last Admin: 01/13/22 08:12 Dose: Not Given Allergies Allergies Allergy/AdvReac Type Severity Reaction Status Date / Time No Known Allergies Allergy Verified 12/26/21 13:46 Assessment & Plan Assessment & Plan (1) Schizoaffective disorder, bipolar type: Status: Acute Code(s): F25.0 - Schizoaffective disorder, bipolar type Assessment and Plan: stabilizing on current plan Plan Mr. Perez is a 36 year-old male with hx of schizoaffective disorder, brought in on section 12 after mother reporting increase paranoia, agitation, threatening to kill her and his step father, paranoid towards neighbor. utox positive for cannabinoids. Pt presents as guarded, not fully forthcoming with extend of delusional content, irritable, asking to be discharge home. PLAN 1. Inpatient level of care due to imminent risk of harm to self and others due to paranoia, psychosis, increase aggression and impaired judgment and insight into need for psychiatric treatment. Section 12. 2. Schedule haldol 5mg po BID, will request records from [place] to obtain medication hx. 3. Aftercare planning. 12/29: no change in mgmt. 12/30: offer lithium for what may be ladonna. continue haldol. 12/31 continue current medications. 01/01 start Haldol Dec 100mg IM q28 days, continue oral haldol due to delay onset of action, continue lithium and clonazepam. 01/02 continue current medications. pending lithium level in few days. 01/03 continue current medications. 01/04 continue current medications. 01/05 doing well on current- no s/e from haldol dec likely getting next shot 01/15 01/06 ctp 01/07 continue current meds, recheck lithium on 01/11, plan d/c on 01/15. 01/08 continue current medications. 01/09 continue meds 01/10 continue current meds. d/c 01/15 01/11 continue current medications. 01/12 continue current medications. I spent minutes with the patient and/or on the patient floor today, greater than?50% of which was spent counseling/coordinating care. Reason for contiued inpatient stay Substantial Risk for: inability to function
[2022-01-12 20:47] VITALS: BP 109/61; PULSE 78; RESP 16; TEMP 36.6; O2SAT 100
[2022-01-13 08:08] VITALS: BP 128/73; PULSE 71; RESP 18; TEMP 36.4; O2SAT 98
[2022-01-13] MEDS: Nicotine 21 MG PATCH.TD24 TRANSDERMA (08:11)
[2022-01-13] MEDS: Lithium Carbonate 300 MG CAPSULE 600 MG PO ×2 (08:12→20:15)
[2022-01-13] MEDS: HaloperidoL 5 MG TABLET PO ×2 (08:12→20:15)
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
[2022-01-13 20:05] VITALS: BP 139/69; PULSE 78; RESP 16; TEMP 36.3; O2SAT 99
[2022-01-14 08:14] VITALS: BP 128/85; PULSE 79; RESP 17; TEMP 36.8; O2SAT 98
[2022-01-14] MEDS: Lithium Carbonate 300 MG CAPSULE 600 MG PO ×2 (08:47→20:37)
[2022-01-14] MEDS: Nicotine 21 MG PATCH.TD24 TRANSDERMA (08:47)
[2022-01-14] MEDS: HaloperidoL 5 MG TABLET PO ×2 (08:47→20:37)
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
[2022-01-14 20:39] VITALS: BP 118/60; PULSE 72; RESP 16; TEMP 36.7; O2SAT 98
[2022-01-15 06:00] VITALS: BP 135/79; PULSE 99; RESP 18; TEMP 36.7; O2SAT 97
[2022-01-15] MEDS: HaloperidoL 5 MG TABLET PO (08:35)
[2022-01-15] MEDS: Nicotine 21 MG PATCH.TD24 TRANSDERMA (08:35)
[2022-01-15] MEDS: Lithium Carbonate 300 MG CAPSULE 600 MG PO (08:35)
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
== END 2022-01-15 12:50 | disposition home health service (06) | DRG 750 ==
LOC: HO.ED 12-27 08:30 → HO.PADLT16 12-27 16:45
PROVIDERS: Physician Assistant Medical; Admitting Provider Psychiatry & Neurology Psychiatry; Emergency Provider Emergency Medicine; Visit Provider Social Worker
DX: F25.0 Schizoaffective disorder, bipolar type (principal); Z20.822 Contact with and (suspected) exposure to COVID-19; Z79.899 Other long term (current) drug therapy
CPT/HCPCS: 36415; 80053; 80061; 80143; 80178; 80179; 80307; 82077; 83036; 84443; 85025; 87635; 93005; 96372; 99285; J2060; Q0163

== ENCOUNTER 2022-10-27 18:05 | Emergency (ER) | payer MEDICAID, SELFPAY ==
[2022-10-27 18:09] VITALS: BP 158/85; PULSE 87; RESP 18; TEMP 36.6; O2SAT 99; BMI 38.8
--- NOTE | 2022-10-27 18:09 | ED_ITS ---
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 States he was talking to neighbor when dog came up behind him and bit him. Vaccination status of dog is unknown. Patient's last tetanus unknown. Denies injury to other area, folic acid head trauma or LOC. Also reports has had mole to neck x awhile and would like it checked for cancer. Believes mole is growing. MD complaint: animal bite Onset (ago): minute(s) Related Data Previous Rx's Medication Instructions Recorded haloperidol 5 mg tablet 5 mg PO BID #60 tabs 01/15/22 haloperidol decanoate 50 mg/mL 100 mg (2 mL) IM Q28D #3 mL 01/15/22 intramuscular solution lithium carbonate 600 mg capsule 600 mg PO BID #60 caps 01/15/22 nicotine 21 mg/24 hr daily 21 mg transdermal DAILY #30 ea 01/15/22 transdermal patch trazodone 100 mg tablet 100 mg PO BEDTIME PRN Insomnia #30 01/15/22 tabs amoxicillin 875 mg-potassium 1 tab PO BID 7 days #14 tabs 10/27/22 clavulanate 125 mg tablet Allergies Allergy/AdvReac Type Severity Reaction Status Date / Time No Known Allergies Allergy Verified 10/27/22 18:09 Review of Systems Review of Systems: Constitutional: No Fever, No Chills ENT/Mouth: No Ear Pain, No Nasal Congestion, No sore throat, No Rhinorrhea, No Swallowing Difficulty Cardiovascular: No Chest Pain, No SOB Respiratory: No Cough, No Sputum Gastrointestinal: No Nausea, No Vomiting, No Diarrhea, No Constipation, No Abdominal pain Musculoskeletal: No joint pain, No Myalgias, No Joint Swelling Skin: + Skin Lesions, No rash Neuro: No Weakness, No Numbness, No Paresthesias Yes all other systems are reviewed and are negative Constitutional: Constitutional: Reports as per [facility] Past Medical History Attestation statement: The following information was validated with the patient. Source: old records reviewed Medical History No known health problems Social History Social History Household Members: None Household Members Other:: 0 Housing: Apartment Do you presently have visiting nurse or other home services: No Alcohol intake: never Patient Tobacco Use Status: Never used Tobacco e-Cigarette/Vaping Use: Never Used Second Hand Smoke Exposure: No Substance Use Type: Marijuana service: No Sexual orientation: Did not discuss. Physical Exam ED Vital Signs: Vital Signs - 24 hr 10/27/22 18:09 Temperature 97.8 F Pulse Rate 87 Respiratory Rate 18 Blood Pressure 158/85 H Pulse Oximetry 99 Oxygen Delivery Method Room Air BMI result Body Mass Index 38.8 Const General: cooperative, healthy appearing and no acute distress Orientation/consciousness: patient oriented x3 Limitations: no limitations HENMT Head: Yes normal to inspection and Yes atraumatic Ears: hearing grossly normal bilaterally General nose exam: Normal external nose present Face and sinus: Yes normal facial exam Eyes General: appearance normal, both eyes and all related structures EOM: EOMs intact bilaterally Neck Other: + irregular shaped dark mole noted beneath chin/upper neck. No fluctuance/induration or surrounding erythema Neck: Yes no meningeal signs Resp Effort & Inspection: normal respiratory effort and no respiratory distress Cardio Rate: regular rate Heart sounds: S1 normal heart sound present and S2 normal heart sound present Skin Other: + small puncture wound noted to right buttock. Small abrasion also noted. Nontender. No drainage, no fluctuance/induration, erythema or warmth Rashes: no rashes Neuro General: patient oriented x3, tone normal and no meningeal signs Gait exam (Neuro): Normal gait present Extrem General: Yes normal to inspection Medications Administered Discontinued Medications Generic Name Dose Route Start Last Admin Trade Name Freq PRN Reason Stop Dose Admin Amoxicillin/Clavulanate Potassium 875 mg 10/27/22 18:17 10/27/22 18:38 Amoxicillin/Potassium Clav 875 Mg Tablet PO 10/27/22 18:18 875 mg ONCE ONE Administration Diphtheria/Tetanus/Acell Pertussis 0.5 ml 10/27/22 18:10 10/27/22 18:38 Diphth,Pertus(Acell),Tet Adult 0.5 Ml Syringe IM 10/27/22 18:11 0.5 ml .ONCE ONE Administration Rabies Immune Globulin 2,454 unit 10/27/22 18:19 10/27/22 18:36 Rabies Immune Globulin/Pf 900 Unit/3 Ml Vial 20 unit/kg (2454 unit) 10/27/22 18:20 2,454 unit IM Administration ONCE ONE Rabies Vaccine Human Diploid Cell 0.5 ml 10/27/22 18:19 10/27/22 18:34 Rabies Vaccine, Human Diploid (Imovax) 0.5 Ml Vial IM 10/27/22 18:20 0.5 ml .ONCE ONE Administration Medical Decision Making Medical Decision Making MDM Narrative: 36-year-old male with a past medical history of schizoaffective disorder presenting to the ED complaining of dog bite to right buttock s/p neighbor's pit bull biting him 30 minutes [employer]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 On exam vital signs stable, NAD, nontoxic appearing, physical exam as noted above with irregularly-shaped dark nevus as well as small puncture wound to right buttock. Vaccination status of dog and patient unknown. No evidence of active cellulitis. Discussed with patient he needs to follow-up with dermatology for proper biopsy/evaluation of mole. Plan: Tdap, rabies vaccine and immunoglobulin, PO Augmentin Results discussed with patient including worrisome signs and symptoms and strict return precautions, and when to return to the emergency department. They verbalized understanding and feel safe for discharge at this time. Differential Diagnosis Differential Diagnoses: The differential diagnosis associated with the p resentation includes As above Lab Data [facility] Lab Attestation statement: I reviewed the patient's lab results. Radiology Impression Discussion of test interpretation with radiology: I have reviewed the radiologist's reading. External Record Review External record reviewed: Inpatient record, Office record, Outpatient record, Prior outpatient labs, Prior outpatient radiology, Primary care record and Outside ED record Tests considered The following testing was considered but not selected: As above Discharge Plan Discharge Clinical Impression: Dog bite, Atypical mole Patient Disposition: Home, Self-Care Instructions: Animal Bite (ED), Atypical Mole (ED) Additional Instructions: Please follow-up with short stay surgery for the remaining doses of your rabies vaccine Augmentin is an antibiotic please take as prescribed If dog bite area begins to look infected, is red or there is drainage/you have fever return to the ED Please follow-up with dermatology for proper evaluation of your mole Prescriptions: New amoxicillin-pot clavulanate 875-125 mg tablet 1 tab PO BID 7 Days Qty: 14 0RF No Action haloperidol 5 mg Tablet 5 mg PO BID Qty: 60 1RF nicotine 21 mg/24 hr Patch 24 Hour 21 mg transdermal DAILY Qty: 30 0RF haloperidol decanoate 50 mg/mL Solution 100 mg IM Q28D Qty: 3 1RF Rx Instructions: Next PRIETO on 01/22/2022 lithium carbonate 600 mg capsule 600 mg PO BID Qty: 60 1RF trazodone 100 mg Tablet 100 mg PO BEDTIME PRN (Reason: Insomnia) Qty: 30 1RF Referrals: Britta Cruz PA [Physician State Wildlife Officer] - Ash Hernandez MD [Physician] - Mayur Howard MD [Physician] - Eunice Castellon PA-C [Physician State Wildlife Officer] - Carley Olivarez PA [Physician State Wildlife Officer] - Zaheer Hernández MD [Physician] - Jose Guadalupe Jara MD [Physician] - Padmaja Thornton MD [Physician] - Cristhian Keen MD [Physician] - Interventions: ED Discharge Assessment Last Done: 10/27/22 19:07 Discharge Date/Time: 10/27/22 19:07
[2022-10-27] MEDS: Rabies Immune Globulin/PF 900 UNIT/3 ML VIAL 2454 UNIT IM (18:36)
[2022-10-27] MEDS: Diphth,Pertus(ACell),Tet Adult 0.5 ML SYRINGE IM (18:38)
[2022-10-27] MEDS: Amoxicillin/Potassium Clav 875 MG TABLET PO (18:38)
--- NOTE | 2022-10-27 19:06 | PC.NURSE ---
pt medicated per mar- rabies inj rx [place] [facility] [place]- VIS given for rabies as well as Tdap.
== END 2022-10-27 19:07 | disposition home or self-care (01) ==
PROVIDERS: Emergency Provider Student in an Organized Health Care Education/Training Program
DX: S31.815A Open bite of right buttock, initial encounter (principal); D22.9 Melanocytic nevi, unspecified; W54.0XXA Bitten by dog, initial encounter; Y93.9 Activity, unspecified; Y92.9 Unspecified place or not applicable; Y99.9 Unspecified external cause status; Z29.14 Encounter for prophylactic rabies immune globulin; Z20.3 Contact with and (suspected) exposure to rabies; Z79.899 Other long term (current) drug therapy; Z23 Encounter for immunization
CPT/HCPCS: 90375; 90471; 90675; 90715; 99282; 99284

== ENCOUNTER 2022-10-30 11:39 | Outpatient (REF) | payer MEDICAID, SELFPAY | END 2022-10-30 11:40 | disposition home or self-care (01) | LOC: HO.MDS 11:39 | PROVIDERS: Visit Provider Physician Assistant | DX: S31.815D Open bite of right buttock, subsequent encounter (principal); W54.0XXD Bitten by dog, subsequent encounter; Z20.3 Contact with and (suspected) exposure to rabies | CPT/HCPCS: 90471; 90675 ==

== ENCOUNTER 2022-11-04 11:38 | Outpatient (REF) | payer MEDICAID, SELFPAY | END 2022-11-04 11:39 | disposition home or self-care (01) | LOC: HO.MDS 11:38 | PROVIDERS: Visit Provider Physician Assistant | DX: S31.815D Open bite of right buttock, subsequent encounter (principal); W54.0XXD Bitten by dog, subsequent encounter; Z20.3 Contact with and (suspected) exposure to rabies | CPT/HCPCS: 90471; 90675 ==

== ENCOUNTER 2022-11-11 10:51 | Outpatient (REF) | payer MEDICAID, SELFPAY | END 2022-11-11 10:52 | disposition home or self-care (01) | LOC: HO.MDS 10:51 | PROVIDERS: Visit Provider Physician Assistant | DX: S31.815D Open bite of right buttock, subsequent encounter (principal); W54.0XXD Bitten by dog, subsequent encounter; Y93.9 Activity, unspecified; Y92.9 Unspecified place or not applicable; Y99.9 Unspecified external cause status; Z20.3 Contact with and (suspected) exposure to rabies; Z29.14 Encounter for prophylactic rabies immune globulin | CPT/HCPCS: 90471; 90675; 96372 ==

== ENCOUNTER 2023-02-26 20:38 | Emergency (ER) | payer MEDICAID, SELFPAY ==
--- NOTE | ~2023-02-26 | XR_ITS ---
EXAMINATION: XR CHEST CLINICAL INFORMATION: Chest pain COMPARISON: Previous chest x-ray most recent August 2018 TECHNIQUE: 2 views of the chest were obtained. FINDINGS: The cardiac and mediastinal contours are normal. The lungs are clear. No pleural effusion or pneumothorax. Bony structures are unremarkable. XR/XR chest 2V IMPRESSION: Unremarkable examination.
[2023-02-26 21:02] VITALS: BP 140/80; BP 150/88; PULSE 97; PULSE 98; RESP 18; TEMP 37.3; O2SAT 100; O2SAT 97; BMI 29.7
--- NOTE | 2023-02-26 21:09 | ED_ITS ---
HPI - General Adult General Chief complaint: Nausea/Vomiting/Diarrhea Stated complaint: Dizziness Time Seen by Provider: 02/26/23 21:07 Source: patient Mode of arrival: EMS Limitations: no limitations History of Present Illness HPI narrative: Patient history of schizoaffective disorder not vaccinated against COVID comes here for nausea vomiting body aches since early today cough is mostly dry saturating 100% on room air temperature 99.1 degrees Related Data Previous Rx's Medication Instructions Recorded haloperidol 5 mg tablet 5 mg PO BID #60 tabs 01/15/22 haloperidol decanoate 50 mg/mL 100 mg (2 mL) IM Q28D #3 mL 01/15/22 intramuscular solution lithium carbonate 600 mg capsule 600 mg PO BID #60 caps 01/15/22 nicotine 21 mg/24 hr daily 21 mg transdermal DAILY #30 ea 01/15/22 transdermal patch trazodone 100 mg tablet 100 mg PO BEDTIME PRN Insomnia #30 01/15/22 tabs amoxicillin 875 mg-potassium 1 tab PO BID 7 days #14 tabs 10/27/22 clavulanate 125 mg tablet benzonatate 200 mg capsule 200 mg PO TID PRN cough #30 caps 02/26/23 ondansetron 4 mg disintegrating 4 mg PO Q6-8H PRN nausea and 02/26/23 tablet vomiting #7 tabs Allergies Allergy/AdvReac Type Severity Reaction Status Date / Time No Known Allergies Allergy Verified 02/26/23 21:09 Review of Systems Review of Systems: Yes all other systems are reviewed and are negative PMFSH Past Medical History Medical History No known health problems Social History Social History Household Members: None Household Members Other:: 0 Housing: Apartment Do you presently have visiting nurse or other home services: No Alcohol intake: never Patient Tobacco Use Status: Never used Tobacco e-Cigarette/Vaping Use: Never Used Second Hand Smoke Exposure: No Substance Use Type: Marijuana service: No Sexual orientation: Did not discuss. Physical Exam ED Vital Signs: Vital Signs - 24 hr 02/26/23 21:02 Temperature 99.1 F Pulse Rate 98 Respiratory Rate 18 Blood Pressure 140/80 H Pulse Oximetry 100 Oxygen Delivery Method Room Air BMI result Body Mass Index 29.7 Appearance: Alert. Oriented X3. No acute distress. Eyes: PERRLA, No Nystagmus ENT: Pharynx normal. Oral Mucosa moist Neck: Normal inspection. Neck supple. CVS: Normal heart rate and rhythm. Pulses normal. Respiratory: No respiratory distress. Equal air entry bilateral, no wheezing/rales/rhonchi Abdomen: Soft and nontender. Bowel sounds are present, no mass palpable, no CVA tenderness Skin: Skin warm and dry. Normal skin color. Normal skin turgor. Extremities: No lower extremity edema. No calf tenderness Neuro: Oriented X 3. No motor deficit. No sensory deficit.No cerebellar signs , cranial nerves II-XII intact Medical Decision Making Medical Decision Making [facility] Narrative: Patient saturating 100% at room air chest x-ray negative discharge patient home on supportive treatment a Lab Data [facility] Lab Attestation statement: I reviewed the patient's lab results. Labs: Lab Results 02/26/23 Range/Units 21:14 COVID-19 (GREGG) Positive A (Negative) COVID-19 Clin Com See Note Discharge Plan Discharge Clinical Impression: COVID-19 Patient Disposition: Home, Self-Care Instructions: COVID-19 (Coronavirus Disease 2019) (ED) Additional Instructions: Social distancing as advised Medicine for nausea as prescribed Cough drops as prescribed Prescriptions: New benzonatate 200 mg capsule 200 mg PO TID PRN (Reason: cough) Qty: 30 0RF ondansetron 4 mg tablet,disintegrating 4 mg PO Q6-8H PRN (Reason: nausea and vomiting) Qty: 7 0RF No Action haloperidol 5 mg Tablet 5 mg PO BID Qty: 60 1RF nicotine 21 mg/24 hr Patch 24 Hour 21 mg transdermal DAILY Qty: 30 0RF haloperidol decanoate 50 mg/mL Solution 100 mg IM Q28D Qty: 3 1RF Rx Instructions: Next PRIETO on 01/22/2022 lithium carbonate 600 mg capsule 600 mg PO BID Qty: 60 1RF trazodone 100 mg Tablet 100 mg PO BEDTIME PRN (Reason: Insomnia) Qty: 30 1RF amoxicillin-pot clavulanate 875-125 mg tablet 1 tab PO BID 7 Days Qty: 14 0RF
[2023-02-26 21:30] LABS: COVID-19 Test Positive (Negative); IDNOW Serial# BCCEAD1C
[2023-02-26] MEDS: Ondansetron ODT 4 MG TAB.RAPDIS TRANSLINGU (21:50)
[2023-02-26] MEDS: Benzonatate 100 MG CAPSULE 200 MG PO (21:50)
== END 2023-02-26 22:18 | disposition home or self-care (01) ==
PROVIDERS: Emergency Provider Internal Medicine
DX: U07.1 COVID-19 (principal); R11.2 Nausea with vomiting, unspecified
CPT/HCPCS: 71046; 87635; 99283; 99284

== ENCOUNTER 2025-02-04 01:41 | Emergency (ER) | payer MEDICAID, SELFPAY ==
[2025-02-04 01:43] VITALS: BP 143/78; PULSE 84; RESP 16; TEMP 36.7; O2SAT 97; BMI 31.1
--- NOTE | 2025-02-04 01:53 | PC.NURSE ---
Pt stated I can't stay, I need to go back to work . LWBS at this time.
--- OUTSIDE RECORDS SUMMARY | 2025-02-04 01:56 | XMS_ITS | Clinical Summary ---
Author Organization [employer] Address [address] [place] [address] Care Team Providers Care Hand I Blocker Name Role Phone Lory Pascal ROCKY Primary Care Provider [phone] Social History Tobacco Use Types Packs/Day Years Used Date Smoking Tobacco: Never Assessed Sex and Gender Information Value Date Recorded Sex Assigned at Male 04/22/2022 10:15 AM EDT Legal Sex Male 10:15 AM EDT Gender Identity Male 04/22/2022 10:15 AM EDT Sexual Orientation Don't know 04/22/2022 10 :15 AM EDT Last Filed Vital Signs Vital Sign Reading Time Taken Comments Blood Pressure 130/80 03/14/2022 12:09 AM EDT Pulse 80 03/14/2022 12:09 AM EDT Temperature - - Respiratory Rate - - Oxygen Saturation - - Inhaled Oxygen Concentration - - Weight 127 kg (280 lb 15.9 oz) 03/14/2022 12:09 AM EDT Height 177.8 cm (5' 10 ) 03/14/2022 12:09 AM EDT Body Mass Index 40.32 03/14/2022 12:09 AM EDT Plan of Treatment Health Maintenance Due Date Last Done Comments Depression Screening 1986 Disability Screening 1986 Alcohol/Substance Use Screening 1998 Tobacco Screening 1998 Family Planning (PISQ) 2001 HPV Vaccines (1 - Male 3-dose series) 2001 Hepatitis B Vaccines (1 of 3 - 19+ 3-dose series) 2005 COVID-19 Vaccine ( - season) 2024 Influenza Vaccine (#1) 2025 2, 04/26/2019, 04/13/2019, Additional history exists Lipid Panel 03/14/2027 03/14/2022 DTaP/Tdap/Td Vaccines (3 - Td or Tdap) 10/27/2032 10/27/2022, 03/14/2022 Zoster Vaccines (1 of 2) 2036 RSV Patients and Patients Aged 60 years or older (1 - 1-dose 75+ series) 2061 Hepatitis A Vaccines Aged Out 06/04/2018 No long er eligible based on patient's age to complete this topic Pneumococcal Vaccine: Pediatrics (0 to 5 Years) and At-Risk Patients (6 to 49) Years Aged Out 06/11/2018 No longer eligible based on patient's age to complete this topic HIV Screening Completed 03/14/2022 Hepatitis C Screening Completed 03/14/2022 HIB Vaccines Aged Out No longer eligi ble based on patient's age to complete this topic IPV Vaccines Aged Out No longer eligi ble based on patient's age to complete this topic Meningococcal B Vaccine Aged Out No l onger eligible based on patient's age to complete this topic Meningococcal Vaccine Aged Out No raj tylor eligible based on patient's age to complete this topic RSV under 20 months Aged Out No longe r eligible based on patient's age to complete this topic Rotavirus Vaccines Aged Out No longer eligible based on patient's age to complete this topic Procedures Procedure Name Priority Date/Time Associated Diagnosis Comments ZZZ HISTORICAL HEPATITIS C AB W/REFL TO HCV RNA, QN, PCR Routine 03/14/2022 11:49 AM EDT HIV 1/2 ANTIGEN/ANTIBODY, FOURTH GENERATION W/RFL Routine 03/14/2022 11:49 AM EDT LIPID PANEL, STANDARD Routine 03/14/2022 11:49 AM EDT from Last 3 Months or Most Recently Relevant to Health Maintenance Results * HEPATITIS C AB W/REFL TO HCV RNA, QN, PCR (03/14/2022 11:49 AM EDT) HEPATITIS C ANTIBODY NON-REACT BIJAN NON-REACT BIJAN [facility] INDEX 0.05 <1.00 [facility] Comment: HCV antibody was non-reactive. There is no laboratory evidence of HCV infection. In most cases, no further action is required. However, if recent HCV exposure is suspected, a test for HCV RNA (test code 57325) is suggested. For additional information please refer to http://[employer]/faq/ODX87n9 (This link is being provided for informational/ educational purposes only.) 03/14/2022 11:4 9 AM EDT Lory Pascal ANP HISTORICAL/NON ORDERABLE LABS Fi nal Result Performing Organization Address [facility] de Phone Number [facility] [address] [place] [address], * HIV 1/2 ANTIGEN/ANTIBODY,FOURTH GENERATION W/RFL (03/14/2022 11:49 AM EDT) HIV-1/2 ANTIGEN AND ANTIBODIES, 4TH GENERATION W/ REFLEX NON-REACT BIJAN NON-REACT BIJAN [facility] Comment: HIV-1 antigen and HIV-1/HIV-2 antibodies were not detected. There is no laboratory evidence of HIV infection. PLEASE NOTE: This information has been disclosed to you from records whose confidentiality may be protected by state law. If your state requires such protection, then the state law prohibits you from making any further disclosure of the information without the specific written consent of the person to whom it pertains, or as otherwise permitted by law. A general authorization for the release of medical or other information is NOT sufficient for this purpose. For additional information please refer to http://[employer]/faq/SVX797 (This link is being provided for informational/ educational purposes only.) The performance of this assay has not been clinically validated in patients less than 2 years old. 03/14/2022 11:4 9 AM EDT us Lory Pascal ANP LAB BLOOD ORDERABLES Final Resul t Performing Organization Address [facility] Phone Number [facility] [address] [place] [address], * LIPID PANEL, STANDARD (03/14/2022 11:49 AM EDT) Chol/HDLC Ratio 3.0 <5.0 (calc) [facility] Cholesterol, Total 161 <200 mg/dL [facility] HDL Cholesterol 53 > OR = 40 mg/dL [facility] LDL Cholesterol 86 mg/dL (calc) [facility] Comment: Reference range: <100 Desirable range <100 mg/dL for primary prevention; <70 mg/dL for patients with CHD or diabetic patients with > or = 2 CHD risk factors. LDL-C is now calculated using the Amee calculation, which is a validated novel method providing better accuracy than the Friedewald equation in the estimation of LDL-C. Lawrence SS et al. KOURTNEY. 2013;310(19): 4936-9328 (http://education.[employer]/faq/ONM921) Non-HDL Cholesterol 108 <130 mg/dL (calc) [facility] Comment: For patients with diabetes plus 1 major ASCVD risk factor, treating to a non-HDL-C goal of <100 mg/dL (LDL-C of <70 mg/dL) is considered a therapeutic option. Triglycerides 123 <150 mg/dL [facility] 03/14/2022 11:4 9 AM EDT Lory HIDALGO LAB BLOOD ORDERABLES Final Resul t [facility] [address] from Last 3 Months or Most Recently Relevant to Health Maintenance Care Teams Hand I Blocker Relationship Specialty Start Date End Date Lory Pascal ANP [address] [place] [id number] PCP - General Family Medicine 07/04/23
[2025-02-04 04:45] LABS: CT PCR Urine NOT DETECTED (Not Detect.); NG PCR Urine NOT DETECTED (Not Detect.)
== END 2025-02-04 01:55 | disposition left against medical advice (07) ==
PROVIDERS: Emergency Provider Emergency Medicine
DX: Z20.2 Contact with and (suspected) exposure to infections with a predominantly sexual mode of transmission (principal)
CPT/HCPCS: 87491; 87591; 99281; 99282